=== PATIENT | male | born 1960 | race Two or more races ===

== ENCOUNTER 2017-07-13 20:20 | Emergency (ER) | payer OTHER ==
[~2017-07-13] VITALS: Ht 172.7 cm; Wt 82.1 kg
[2017-07-13] MEDS ORDERED: METF500 PO (20:47)
[2017-07-13] MEDS ORDERED: LISI5 PO (20:48)
[2017-07-13] MEDS ORDERED: TOUJEO SOL300 UNIT/1 SC (20:48)
[2017-07-13 21:08] LABS: BASOPHILS ABSOLUTE AUTO 0.03 K/mm3 (0.00-0.23); BASOPHILS PERCENT AUTO 1 % (0-2); EOSINOPHILS ABSOLUTE AUTO 0.16 K/mm3 (0.00-0.68); EOSINOPHILS PERCENT AUTO 3 % (0-6); Hematocrit 41.2 % (37.0-53.0); Hemoglobin 14.6 g/dL (13.5-17.5); IMMATURE GRAN ABSOLUTE AUTO 0.01 K/mm3 (0.00-0.10); IMMATURE GRAN PERCENT AUTO 0 % (0-1); LYMPHOCYTES ABSOLUTE AUTO 1.71 K/mm3 (0.84-5.20); LYMPHOCYTES PERCENT AUTO 31 % (21-46); MONOCYTES ABSOLUTE AUTO 0.36 K/mm3 (0.16-1.47); MONOCYTES PERCENT AUTO 7 % (4-13); Mean Corpuscular HGB 29.3 pg (26.0-34.0); Mean Corpuscular HGB Conc 35.4 g/dL (31.5-36.5); Mean Corpuscular Volume 83 fL (80-100); Mean Platelet Volume 9.6 fL (9.1-12.4); NEUTROPHILS ABSOLUTE AUTO 3.23 K/mm3 (1.96-9.15); NEUTROPHILS PERCENT AUTO 59 % (41-73); Platelet Count 240 K/mm3 (150-400); RDW Coefficient Variation 12.1 % (11.7-14.2); RDW Standard Deviation 36.6 fL (35.1-46.3); Red Blood Cell Count 4.98 M/mm3 (4.30-5.90)
[2017-07-13 21:26] LABS: Alanine Aminotransfer (ALT/SGP 21 U/L (12-78); Albumin, Blood 3.8 g/dL (3.4-5.0); Albumin/Globulin Ratio 1.1 (0.8-1.8); Alk Phos 66 U/L (50-136); Anion Gap 5 mmol/L (6-16); Aspartate Aminotrans (AST/SGOT 21 U/L (12-37); Bilirubin, Total 0.6 mg/dL (0.1-1.0); Blood Urea Nitrogen 17 mg/dL (8-24); Bun/Creatinine Ratio 19.3 (12.0-20.0); CO2, Blood 29 mmol/L (21-32); Calcium, Blood 8.3 mg/dL (8.5-10.1); Chloride, Blood 106 mmol/L (98-108); Creatinine, Blood 0.88 mg/dL (0.60-1.20); Globulin, Blood 3.5 g/dL (2.2-4.0); Glomerular Filtration Rate >60 (60-); Glucose, Blood 127 mg/dL (70-99); Potassium, Blood 3.8 mmol/L (3.5-5.5); Sodium, Blood 140 mmol/L (136-145); Total Protein, Blood 7.3 g/dL (6.4-8.2); Troponin I <0.015 ng/mL (0.000-0.040)
== END 2017-07-13 23:24 | disposition home or self-care (01) ==
LOC: ER 20:20
PROVIDERS: Emergency Medicine
DX: R07.89 Other chest pain (principal); R42 Dizziness and giddiness; R41.0 Disorientation, unspecified; E11.9 Type 2 diabetes mellitus without complications; I10 Essential (primary) hypertension; Z79.899 Other long term (current) drug therapy; Z79.4 Long term (current) use of insulin; Z79.84 Long term (current) use of oral hypoglycemic drugs
CPT/HCPCS: 36415; 70450; 71046; 80053; 82947; 84484; 85025; 93005; 93010; 99284

== ENCOUNTER → 2017-08-15 | Outpatient (CLI) | payer OTHER ==
[~2017-08-15] MED LIST: LISI5 PO; METF500 PO; TOUJEO SOL300 UNIT/1 SC
== END | disposition home or self-care (01) ==
LOC: LAB SHORT 16:18 → LAB 16:18
DX: E11.9 Type 2 diabetes mellitus without complications (principal)
CPT/HCPCS: 82043

== ENCOUNTER → 2017-08-22 | Outpatient (CLI) | payer OTHER | LOC: LAB SHORT 08:12 → PLD 08:12 | DX: L57.0 Actinic keratosis (principal) | CPT/HCPCS: 88305 ==

== ENCOUNTER 2020-12-01 14:18 | Emergency (ER) | payer OTHER ==
[~2020-12-01] VITALS: Ht 172.7 cm; Wt 82.5 kg
[~2020-12-01 14:18] MED LIST changes: -TOUJEO SOL300 UNIT/1 SC; +TOUJEO SOL300 UNIT/2 SC
[2020-12-01 14:59] LABS: BASOPHILS ABSOLUTE AUTO 0.03 K/mm3 (0.00-0.23); BASOPHILS PERCENT AUTO 1 % (0-2); EOSINOPHILS ABSOLUTE AUTO 0.21 K/mm3 (0.00-0.68); EOSINOPHILS PERCENT AUTO 3 % (0-6); Hematocrit 35.4 % (37.0-53.0); Hemoglobin 12.1 g/dL (13.5-17.5); IMMATURE GRAN ABSOLUTE AUTO 0.02 K/mm3 (0.00-0.10); IMMATURE GRAN PERCENT AUTO 0 % (0-1); LYMPHOCYTES PERCENT AUTO 23 % (21-46); MONOCYTES ABSOLUTE AUTO 0.37 K/mm3 (0.16-1.47); MONOCYTES PERCENT AUTO 6 % (4-13); Mean Corpuscular HGB 29.5 pg (26.0-34.0); Mean Corpuscular HGB Conc 34.2 g/dL (31.5-36.5); Mean Corpuscular Volume 86 fL (80-100); Mean Platelet Volume 9.8 fL (9.1-12.4); NEUTROPHILS ABSOLUTE AUTO 4.39 K/mm3 (1.96-9.15); NEUTROPHILS PERCENT AUTO 67 % (41-73); Platelet Count 266 K/mm3 (150-400); RDW Standard Deviation 37.9 fL (35.1-46.3); White Blood Cell Count 6.52 K/mm3 (4.00-11.30)
[2020-12-01 15:28] LABS: Albumin, Blood 3.8 g/dL (3.4-5.0); Bilirubin, Total 0.4 mg/dL (0.1-1.0); Bun/Creatinine Ratio 21.5 (12.0-20.0); Calcium, Blood 8.4 mg/dL (8.5-10.1); Creatinine, Blood 1.86 mg/dL (0.60-1.20); Globulin, Blood 3.7 g/dL (2.2-4.0); Potassium, Blood 7.2 mmol/L (3.5-5.5); Total Protein, Blood 7.5 g/dL (6.4-8.2)
[2020-12-01] MEDS ORDERED: AMLODIPINE-OLM1 EACH PO (16:59)
[2020-12-01] MEDS ORDERED: ATORVASTATIN CA20 MG PO (17:00)
[2020-12-01] MEDS ORDERED: DYAZIDE 37.5-21 EACH PO (17:00)
[2020-12-01 19:52] LABS: Albumin, Blood 3.4 g/dL (3.4-5.0); Albumin/Globulin Ratio 1.1 (0.8-1.8); Bilirubin, Total 0.6 mg/dL (0.1-1.0); Bun/Creatinine Ratio 21.1 (12.0-20.0); Calcium, Blood 8.2 mg/dL (8.5-10.1); Creatinine, Blood 1.85 mg/dL (0.60-1.20); Globulin, Blood 3.2 g/dL (2.2-4.0); Potassium, Blood 4.4 mmol/L (3.5-5.5); Total Protein, Blood 6.6 g/dL (6.4-8.2)
[2020-12-01] MEDS ORDERED: Norvasc5 MG PO (20:55)
== END 2020-12-01 20:57 | disposition home or self-care (01) ==
LOC: ER 14:18
PROVIDERS: Physician Assistant
DX: N17.9 Acute kidney failure, unspecified (principal); E87.5 Hyperkalemia; E11.9 Type 2 diabetes mellitus without complications; I10 Essential (primary) hypertension; Z79.4 Long term (current) use of insulin; Z79.899 Other long term (current) drug therapy
CPT/HCPCS: 36415; 80053; 85025; 93005; 93010; 94644; 96374; 99284-25; J0610; J1815; J7030

== ENCOUNTER 2022-02-25 19:12 | Inpatient (IN) | payer OTHER ==
[~2022-02-25] VITALS: Ht 172.7 cm; Wt 82.9 kg
[~2022-02-25 19:12] MED LIST changes: +AMLODIPINE-OLM1 EACH PO; +ATORVASTATIN CA20 MG PO; +DYAZIDE 37.5-21 EACH PO; +Norvasc5 MG PO
[2022-02-25 19:43] LABS: Source, Urine Clean Catch
[2022-02-25 19:48] LABS: Appearance, Urine Hazy (Clear); Bilirubin, Urine Neg (Neg); Blood, Urine 4+ (Neg); Color, Urine Yellow (P-Yellow); Glucose Qualitative, Urine 1+ (Neg); Ketones, Urine Neg (Neg); Leukocyte Esterase, Urine Neg (Neg); Nitrite, Urine Neg (Neg); Protein, Urine 4+ (Neg); Specific Gravity, Urine 1.015 (1.003-1.022); Urobilinogen, Urine NORM (Normal)
[2022-02-25 20:06] LABS: Bacteria Few /hpf; Squamous Epithelial Cells Not Seen /hpf (Few)
[2022-02-25] MEDS ORDERED: FUROSEMIDE40 MG PO (21:15)
[2022-02-25] MEDS ORDERED: ROSUVASTATIN CAL5 MG PO (21:15)
[2022-02-25] MEDS ORDERED: OLMESARTAN MEDO20 MG PO (21:16)
[2022-02-26 01:04] LABS: Prostate Specific Antigen 0.992 ng/mL (0.000-4.000)
--- NOTE | 2022-02-26 01:07 | NUR ---
24 HOUR URINE STARTED AT 0100
[2022-02-26 04:59] LABS: BASOPHILS ABSOLUTE AUTO 0.04 K/mm3 (0.00-0.23); BASOPHILS PERCENT AUTO 0 % (0-2); EOSINOPHILS ABSOLUTE AUTO 0.06 K/mm3 (0.00-0.68); EOSINOPHILS PERCENT AUTO 1 % (0-6); Hematocrit 30.6 % (37.0-53.0); Hemoglobin 10.3 g/dL (13.5-17.5); IMMATURE GRAN ABSOLUTE AUTO 0.04 K/mm3 (0.00-0.10); IMMATURE GRAN PERCENT AUTO 0 % (0-1); LYMPHOCYTES ABSOLUTE AUTO 0.91 K/mm3 (0.84-5.20); LYMPHOCYTES PERCENT AUTO 7 % (21-46); MONOCYTES ABSOLUTE AUTO 0.79 K/mm3 (0.16-1.47); MONOCYTES PERCENT AUTO 6 % (4-13); Mean Corpuscular HGB 29.7 pg (26.0-34.0); Mean Corpuscular HGB Conc 33.7 g/dL (31.5-36.5); Mean Corpuscular Volume 88 fL (80-100); NEUTROPHILS ABSOLUTE AUTO 10.88 K/mm3 (1.96-9.15); NEUTROPHILS PERCENT AUTO 86 % (41-73); Platelet Count 275 K/mm3 (150-400); RDW Coefficient Variation 11.9 % (11.7-14.2); RDW Standard Deviation 38.2 fL (35.1-46.3); Red Blood Cell Count 3.47 M/mm3 (4.30-5.90); White Blood Cell Count 12.72 K/mm3 (4.00-11.30)
[2022-02-26 05:34] LABS: Amylase, Blood 71 U/L (25-115); CPK Creatine Kinase 877 U/L (39-308); Uric Acid, Blood 6.9 mg/dL (3.5-7.2)
[2022-02-26 05:51] LABS: Albumin, Blood 2.1 g/dL (3.4-5.0); Anion Gap 9 mmol/L (6-16); Blood Urea Nitrogen 62 mg/dL (8-24); Bun/Creatinine Ratio 8.4 (12.0-20.0); CO2, Blood 21 mmol/L (21-32); Calcium, Blood 6.5 mg/dL (8.5-10.1); Chloride, Blood 108 mmol/L (98-108); Creatinine, Blood 7.35 mg/dL (0.60-1.20); Glomerular Filtration Rate 8 (60-); Glucose, Blood 96 mg/dL (70-99); Phosphorus, Blood 5.5 mg/dL (2.5-4.9); Potassium, Blood 5.4 mmol/L (3.5-5.5); Sodium, Blood 138 mmol/L (136-145)
--- NOTE | 2022-02-26 06:26 | NUR ---
PATIENT FINALLY COMFORTABLE ENOUGH TO SLEEP AROUND 0500 THIS MORNING. MD NOTIFIED TWICE AND ORDERS RECEIVED BOTH TIMES FOR SEVERE HYPERTENSION RANGING FROM 199/108 WHEN HE ARRIVED, TO 190/80 AFTER 10MG IV HYDRALAZINE AND 0.25MCG FENTANYL FOR 9/10 LEFT FLANK PAIN, TO 151/60 AFTER 20MG HYDRALAZINE. TO 151/60 AFTER RECEIVING 20MG IV HYDRALAZINE, 1MG IV DILAUDID FOR 10/10 LEFT FLANK PAIN NOT RESOLVED WITH FENTANYL AND 0.1MG CLONIDINE. PATIENT AND HIS SHAVON HAVE MANY QUESTIONS ABOUT THE CAUSE OF ESCOBAR'S CURRENT MYRIAD OF PROBLEMS
--- NOTE | 2022-02-26 14:33 | NUR ---
PT STATES FEELS OK WITH MINIMAL PAIN AT REST. HOWEVER, WHEN STANDS UP AND MOVES. SHARP STABBING PN ON LEFT FLANK. PT ALSO WANTS TO KNOW OF ANY RESULTS ON ALL TESTS.
--- NOTE | 2022-02-26 17:58 | NUR ---
PT CONCERNED ABOUT PAIIN THIS KENNY. DID GIVE PAIN MED. TRIED ONE, THIS TIME, TRIED BOTH. WILL MONITOR. PT STATES PAIN WORSE AND WANTS TO KNOW WHY. CALLED DR QUEVEDO, HE STATES HE TOLD PT LIKELY MUSCULAR/SKELETAL NOT KIDNEY. HE WILL NOT BE ABLE TO TOLERATE THE ANTI-INFLAMATION MEDS. SO IS USING THE PAIN PILLS. AND HEAT PAD. DONE. RELAYED INFO TO PT . HE ASKING IF SURGERY. EXPLAINED I AM NOT DR, I DO NOT KNOW, BUT CAN ASK DR. WE CAN HOPE FOR REST AND PAIN MANAGEMENT TO SEE IF HELPS. BUT DR IS WHO TO DISCUSS WITH TOMORROW. PT AGREED. BED IN LOW POSITION, CALL LITE IN REACH, CALLS APPROP
--- NOTE | 2022-02-26 23:10 | NUR ---
VOICED EARLIER HAVING "HEAERTBURN" AND "GAS". MD NOTIFIED AND ORDERS FOR TUMS OBTAINED. MED ADMINISTERED. CALL LIGHT IN REACH. IVF INFUSING.
[2022-02-27 03:07] LABS: Protein, Urine Quantitative 745.6 mg/dL (0.0-11.9)
[2022-02-27 04:50] LABS: BASOPHILS ABSOLUTE AUTO 0.02 K/mm3 (0.00-0.23); BASOPHILS PERCENT AUTO 0 % (0-2); EOSINOPHILS PERCENT AUTO 1 % (0-6); Hematocrit 26.8 % (37.0-53.0); Hemoglobin 8.9 g/dL (13.5-17.5); IMMATURE GRAN ABSOLUTE AUTO 0.03 K/mm3 (0.00-0.10); IMMATURE GRAN PERCENT AUTO 0 % (0-1); LYMPHOCYTES ABSOLUTE AUTO 0.74 K/mm3 (0.84-5.20); LYMPHOCYTES PERCENT AUTO 8 % (21-46); MONOCYTES ABSOLUTE AUTO 0.78 K/mm3 (0.16-1.47); MONOCYTES PERCENT AUTO 9 % (4-13); Mean Corpuscular HGB 29.6 pg (26.0-34.0); Mean Corpuscular HGB Conc 33.2 g/dL (31.5-36.5); Mean Corpuscular Volume 89 fL (80-100); Mean Platelet Volume 10.3 fL (9.1-12.4); NEUTROPHILS ABSOLUTE AUTO 7.32 K/mm3 (1.96-9.15); NEUTROPHILS PERCENT AUTO 82 % (41-73); Platelet Count 217 K/mm3 (150-400); RDW Coefficient Variation 11.8 % (11.7-14.2); RDW Standard Deviation 37.6 fL (35.1-46.3); Red Blood Cell Count 3.01 M/mm3 (4.30-5.90); White Blood Cell Count 8.99 K/mm3 (4.00-11.30)
[2022-02-27 05:11] LABS: Albumin, Blood 1.8 g/dL (3.4-5.0); Albumin/Globulin Ratio 0.5 (0.8-1.8); Bilirubin, Total 0.3 mg/dL (0.1-1.0); Bun/Creatinine Ratio 8.6 (12.0-20.0); Calcium, Blood 6.6 mg/dL (8.5-10.1); Creatinine, Blood 7.77 mg/dL (0.60-1.20); Globulin, Blood 3.9 g/dL (2.2-4.0); Magnesium, Blood 2.2 mg/dL (1.6-2.4); Phosphorus, Blood 7.6 mg/dL (2.5-4.9); Potassium, Blood 4.4 mmol/L (3.5-5.5); Total Protein, Blood 5.7 g/dL (6.4-8.2)
--- NOTE | 2022-02-27 05:51 | NUR ---
SUPERVISOR FIBERGLASS BOAT ASSEMBLY SUMMARY BP ELEVATED, OTHERWISE VSS. RECEIVING ANTIHYPERTENSIVES - SEE MAR FOR DETAILS. ASYMPTOMATIC. IVF OF SODIUM BICARB INFUSING ORDERED. HAS BEEN RESTING WITH FEW INTERRUPTIONS. UP AD MARIA. CALL LIGHT IN REACH
--- NOTE | 2022-02-27 16:43 | NUR ---
SHIFT SUMMARY PT REPORTS PAIN IMPROVED DURING DAY PER EMAR, HE IS PASSING SOME GAS BUT STILL HAS NOT HAD BOWEL MOVEMENT. HE AMBULATES WELL TO RESTROOM ON HIS OWN, NO WEAKNESS NOTED. CT SCAN DONE. PT CURRENTLY WATCHING FOOTBALL, DENIES NEEDS AT THIS TIME. TOLERATING PO BUT TAKING IT SLOWLY RELATED TO CONSTIPATION AND BLOATED FEELING.
--- NOTE | 2022-02-27 19:43 | NUR ---
AWAKE, SITTING AT BEDSIDE. IVF INFUSING. CALL LIGHT IN REACH
--- NOTE | 2022-02-28 02:00 | NUR ---
SOAP SUDS ENEMA ADMINISTERED PER MD ORDERS. PT STATED IT "RELIEVED SOME PRESSURE" BUT NO BM. WILL HAVE AM DISCUSS FURTHER TREATMENT OF PTS CONSTIPATION WITH MD IN THE AM. CALL LIGHT IN REACH, ASYNPTOMATIC.
--- NOTE | 2022-02-28 04:05 | NUR ---
ORIENTATION & MOBILITY SPECIALIST SUMMARY RECEIVED BOWEL CARE MEDS, VISITORS WERE AT BEDSIDE. SCHEDULED SOAP SUDS ENEMA WAS HELD FOR LATER. IVF INFUSING AT 50 ML/HR. TOLERATED DIET WELL, BUT CONSTIPATION CONTINUED. LATER ENEMA GIVEN, AND ALTHOUGH DENIED HAVING BM, VOICED IT HAD RELIEVED PRESSURE IN ABD. STILL LATER IN THE NIGHT, VOICED NAUSEA. ZOFRAN GIVEN AND CURRENTLY RESTING QUIETLY. WILL HAVE AM RN HAVE MD REVIEW OPTIONS FOR PT TO HAVE BM. BOWEL SOUNDS SLIGHT TO AUSCULTATION. CALL LIGHT IN REACH. WILL CONTINUE TO MONITOR
[2022-02-28 05:17] LABS: Hematocrit 25.7 % (37.0-53.0); Hemoglobin 8.7 g/dL (13.5-17.5)
[2022-02-28 05:54] LABS: Magnesium, Blood 1.8 mg/dL (1.6-2.4)
[2022-02-28 06:08] LABS: Albumin, Blood 1.7 g/dL (3.4-5.0); Anion Gap 9 mmol/L (6-16); Blood Urea Nitrogen 76 mg/dL (8-24); Bun/Creatinine Ratio 9.2 (12.0-20.0); CO2, Blood 28 mmol/L (21-32); Calcium, Blood 7.1 mg/dL (8.5-10.1); Chloride, Blood 99 mmol/L (98-108); Creatinine, Blood 8.27 mg/dL (0.60-1.20); Glomerular Filtration Rate 7 (60-); Glucose, Blood 204 mg/dL (70-99); Phosphorus, Blood 8.4 mg/dL (2.5-4.9); Potassium, Blood 4.1 mmol/L (3.5-5.5); Sodium, Blood 136 mmol/L (136-145)
[2022-02-28 12:50] LABS: Creatinine, Blood 8.27 mg/dL (0.60-1.20)
--- NOTE | 2022-02-28 13:30 | NUR ---
CONSULT FOR PERMACAT SPOKE w/ GEN SURGERY, PT HAS ATE TODAY SO PLAN FOR NPO AFTER MIDNIGHT FOR PROCEDURE TOMORROW w/ DR FARR.
[2022-02-28 14:08] LABS: IMMUNOGLOBULIN A, QN, SERUM 172 mg/dL (90-386); IMMUNOGLOBULIN G, QN, SERUM 733 mg/dL (603-1613); IMMUNOGLOBULIN M, QN, SERUM 91 mg/dL (20-172)
--- NOTE | 2022-02-28 18:22 | NUR ---
SHIFT SUMMARY PLAN FOR PERMACATH PLACEMENT TOMORROW. PT EDUCATED ON NPO AFTER MIDNIGHT. PER DR NUNES, STARTS GENTLE IV HYDRATION THEN. HAD 2 BM's TODAY & REPORTS SOME ABD RELIEF; PASSING GAS. CONT's TO C/O GAS CRAMPS.
--- NOTE | 2022-03-01 01:44 | NUR ---
RECEIVED REPORT FROM [facility]. ASSUMING CARE OF PT UNTIL END OF SHIFT. PT RESTING QUIETLY. NS AT 50 MLS/HR INFUSING WHILE PT IS NPO FOR PERMA CATH PLACEMENT IN AM. CALL LT IN REACH.
--- NOTE | 2022-03-01 01:54 | NUR ---
NURSE NOTE ASSESSMENT DONE. MEDICATIONS ADMINISTERED. REPORT GIVEN TO ARLENE RENAE FOR TRANSFERRING PATIENT CARE.
--- NOTE | 2022-03-01 02:46 | NUR ---
PT RESTING QUIETLY. IVF INFUSING. RESP E/U ON RA. NO NEEDS AT THIS TIME. CALL LT IN REACH.
--- NOTE | 2022-03-01 04:47 | NUR ---
SHIFT SUMMARY: ASSUMED CARE AT 0144. A/O. PLEASANT AND COOPERATIVE. ON RA. RESTED WELL T/O SHIFT. NS AT 50 MLS/HR STARTED AT MN WHILE NPO. PERMA CATH PLACEMENT SCHEDULED FOR TODAY. NO ACUTE CHANGES. INDEP IN RM. WILL CONTINUE TO PROVIDE CARE UNTIL SHIFT REPORT.
[2022-03-01 07:00] LABS: Influenza A, PCR NEGATIVE (NEGATIVE); Influenza B, PCR NEGATIVE (NEGATIVE); Resp Syncytial Virus, PCR NEGATIVE (NEGATIVE); SARS-Cov-2 (COVID-19) PCR, MMC NEGATIVE (NEGATIVE)
[2022-03-01 08:11] LABS: Magnesium, Blood 2.1 mg/dL (1.6-2.4)
[2022-03-01 08:28] LABS: Albumin, Blood 1.6 g/dL (3.4-5.0); Anion Gap 9 mmol/L (6-16); Blood Urea Nitrogen 87 mg/dL (8-24); Bun/Creatinine Ratio 9.9 (12.0-20.0); CO2, Blood 29 mmol/L (21-32); Calcium, Blood 6.9 mg/dL (8.5-10.1); Chloride, Blood 97 mmol/L (98-108); Creatinine, Blood 8.75 mg/dL (0.60-1.20); Glomerular Filtration Rate 6 (60-); Glucose, Blood 178 mg/dL (70-99); Phosphorus, Blood 8.3 mg/dL (2.5-4.9); Potassium, Blood 4.2 mmol/L (3.5-5.5); Sodium, Blood 135 mmol/L (136-145)
--- NOTE | 2022-03-01 11:15 | NUR ---
THIS NURSE ENTERED PATIENT ROOM TO ADMINISTER MORNING MEDICATIONS. DR. TURNER IN ROOM WITH NURSE, PT AND PATIENT'S SISTER AT THAT TIME. DR TURNER ORDERED THIS NURSE TO WAIT ON GIVING PATIENT MORNING MEDICATIONS UNTIL HE VERIFIES WITH DR. FARR IF PATIENT SHOULD HAVE THEM. CALL PLACED TO DR. FARR AT 1110 ON 03/01/22 TO INQUIRE IF THESE MEDICATIONS CAN BE GIVEN OR NOT. VSS THOUGH HTN NOTED. CORRECT FITTING BLOOD PRESSURE CUFF REPLACED THE PREVIOUS ONE THAT WAS TOO SMALL. DR MENDOZA UPDATED ON MEDICATION HOLD. SURGERY CENTER CALLED WHILE THIS NURSE WAS IN ROOM WITH PATIENT AND DR. AZAR AND VERIFIED TO HOLD MORNING MEDICATIONS.
[2022-03-01 16:08] LABS: Anion Gap 10 mmol/L (6-16); Blood Urea Nitrogen 91 mg/dL (8-24); Bun/Creatinine Ratio 10.6 (12.0-20.0); CO2, Blood 28 mmol/L (21-32); Calcium, Blood 7.5 mg/dL (8.5-10.1); Chloride, Blood 96 mmol/L (98-108); Creatinine, Blood 8.61 mg/dL (0.60-1.20); Glomerular Filtration Rate 7 (60-); Glucose, Blood 237 mg/dL (70-99); Phosphorus, Blood 8.3 mg/dL (2.5-4.9); Potassium, Blood 4.2 mmol/L (3.5-5.5); Sodium, Blood 134 mmol/L (136-145)
[2022-03-01 18:10] LABS: ANTIMYELOPEROXIDASE (MPO) ABS <0.2 units (0.0-0.9); ANTIPROTEINASE 3 (PR-3) ABS <0.2 units (0.0-0.9); ATYPICAL PANCA <1:20 titer (Neg:<1:20); CYTOPLASMIC (C-ANCA) <1:20 titer (Neg:<1:20); PERINUCLEAR (P-ANCA) <1:20 titer (Neg:<1:20)
--- NOTE | 2022-03-01 18:42 | NUR ---
SHIFT SUMMARY PT AXO X4, PLEASANT AND COOPERATIVE WITH CARE. PT NPO AT START OF SHIFT AWAITING PERMICATH PLACEMENT WHICH HE STATED HE WAS TOLD WOULD HAPPEN "AROUND 11:30 AM TO NOON." AFTER 1300 THIS NURSE CALLED DAY SURGERY WHO STATED THIS PATIENT "WAS NOT ON THE SCHEDULE," AND THAT DR FARR WOULD NOT BE ABLE TO DO THIS PROCEDURE TODAY. THIS NURSE UPDATED FAMILY WHO WAS UPSET AT THAT TIME AND STATED THAT THEY WERE WORRIED THAT PATIENT'S PROCEDURE AND DIALYSIS WOULD BE DELAYED TOO MUCH AND ARE CONSIDERING TRYING TO TRANFER PATIENT TO [facility]. THIS NURSE ACTIVELY LISTENED AND EMPLOYED THERAPEUTIC COMMUNICATION TO [facility] WITH GOOD EFFECT. FAMILY REQUESTED TO SPEAK WITH PATIENT ADVOCATE. THIS NURSE CALLED AND LEFT MESSAGE FOR PATIENT ADVOCATE TO RETURN CALL. SEE PRIOR NOTE. VSS THOUGH HTN NOTED WITH AFTERNOON VS. DR AZAR NOTIFIED BUT SINCE BP WAS NOT OVER 160, THIS NURSE DID NOT GIVE PRN MED. CBG ACHS, MEDICATED PER EMAR. IV PATENT AND SALINE LOCKED. BED IN LOW POSITION, CALL LIGHT WITHIN REACH. PT HAD SHOWER THIS SHIFT. UP IN CHAIR THROUGHOUT THE DAY. REFUSED PAIN MEDICATION THOUGH COMPLAINS ABOUT BACK PAIN. HEATING PAD IN PLACE. DR FARR CALLED AND STATED THAT DR VICK WILL ASSESS PATIENT TOMORROW AND FORM PLAN FOR PROCEDURE. FAMILY UPDATED.
--- NOTE | 2022-03-02 03:53 | NUR ---
SHIFT SUMMARY PATIENT IS ALERT AND ORIENTED. PATIENT HAS BEEN NPO SINCE MIDNIGHT. PATIENT HAS NOT HAD ANY ACUTE EVENTS THIS SHIFT. VITAL SIGNS REVIEWED. PATIENT IS AWAITING PERMACATH PLACEMENT TODAY. PATIENT HAS COMPLAINED OF GAS/FLANK PAIN AND MEDICATED PER EMAR. PATIENT HAS NOT COMPLAINED OF SOB, NAUSEA OR VOMITTING THIS SHIFT. PATIENT HAS BEEN RESTING COMFORTABLY THIS SHIFT. BED IN LOCKED AND LOWEST POSITION. CALL LIGHT IN PLACE. WILL MONITOR UNTIL SHIFT CHANGE.
[2022-03-02 04:45] LABS: Hematocrit 27.6 % (37.0-53.0); Hemoglobin 9.3 g/dL (13.5-17.5)
[2022-03-02 05:12] LABS: Magnesium, Blood 2.2 mg/dL (1.6-2.4)
[2022-03-02 05:35] LABS: Albumin, Blood 1.7 g/dL (3.4-5.0); Anion Gap 11 mmol/L (6-16); Blood Urea Nitrogen 97 mg/dL (8-24); Bun/Creatinine Ratio 10.9 (12.0-20.0); CO2, Blood 29 mmol/L (21-32); Chloride, Blood 97 mmol/L (98-108); Creatinine, Blood 8.93 mg/dL (0.60-1.20); Glomerular Filtration Rate 6 (60-); Glucose, Blood 174 mg/dL (70-99); Phosphorus, Blood 8.3 mg/dL (2.5-4.9); Potassium, Blood 4.3 mmol/L (3.5-5.5); Sodium, Blood 137 mmol/L (136-145)
--- NOTE | 2022-03-02 08:48 | NUR ---
RN NOTE CALLED DR AZAR. SHE SAID TO HOLD ALL AM MEDS EXCEPT FOR CLONIDINE PO, CAN GIVE THE REST WHEN HE GETS BACK FROM SURGERY.
--- NOTE | 2022-03-02 11:50 | NUR ---
AM NOTE MR RICHARD IS AWAITING OR FOR PERMACATH PLACEMENT, THEN DIALYSIS PLANNED FOR AFTER PLACEMENT. FAMILY AT BEDSIDE. C/O /10 ABDOMINAL DISCOMFORT. HE SAID HE HASN'T HAD A BM FOR A FEW DAYS. AM COLACE AND MIRILAX HELD NPO. UP INDEPENDENTLY TO THE BATHROOM. BED LOW, CALL LIGHT INI REACH.
--- NOTE | 2022-03-02 13:14 | NUR ---
PT BROUGHT FROM [facility] IN [facility] FOR PERMACATH PLACEMENT.
--- NOTE | 2022-03-02 17:47 | NUR ---
RN NOTE RETURNED TO MEDICAL UNIT S/P NEW PERMACATH AND HEMODIALYSIS. BP 176/76. ORDER IN AUG FOR HYDRALAZINE FOR HTN BUT NO PARAMETERS. I CALLED AND TAKED WITH DR AZAR. RECHECK BP IN AN HOUR, DO NOT TREAT AT THIS TIME. DO NOT GIVE AM BUMEX PER DR AZAR. R CHEST PERMACATH IN PLACE. AREA SORE BUT NOT PAINFUL. AT BEDSIDE.
--- NOTE | 2022-03-03 04:36 | NUR ---
SHIFT SUMMARY PATIENT IS ALERT AND ORIENTED. PATIENT HAS HAD NO ACUTE EVENTS THIS SHIFT. VITAL SIGNS REVIEWED. PATIENT HAS BEEN RESTING COMFORTABLY THIS SHIFT. PATIENT HAS NOT COMPLAINED OF NAUSEA, SOB, PAIN, OR VOMITTING THIS SHIFT. PATIENT HAS BEEN IND AND HAS BEEN PLEASENT AND COOPERATATIVE WITH CARE THIS SHIFT. BED IN LOCKED AND LOWEST POSITION. CALL LIGHT IN PLACE. WILL MONITOR UNTIL SHIFT CHANGE.
[2022-03-03 04:56] LABS: Hematocrit 26.5 % (37.0-53.0); Hemoglobin 9.2 g/dL (13.5-17.5)
[2022-03-03 05:40] LABS: Albumin, Blood 1.7 g/dL (3.4-5.0); Anion Gap 10 mmol/L (6-16); Blood Urea Nitrogen 79 mg/dL (8-24); Bun/Creatinine Ratio 11.5 (12.0-20.0); CO2, Blood 30 mmol/L (21-32); Calcium, Blood 7.6 mg/dL (8.5-10.1); Chloride, Blood 96 mmol/L (98-108); Creatinine, Blood 6.88 mg/dL (0.60-1.20); Glomerular Filtration Rate 9 (60-); Glucose, Blood 235 mg/dL (70-99); Magnesium, Blood 2.2 mg/dL (1.6-2.4); Phosphorus, Blood 7.6 mg/dL (2.5-4.9); Potassium, Blood 4.1 mmol/L (3.5-5.5); Sodium, Blood 136 mmol/L (136-145)
--- NOTE | 2022-03-03 18:18 | NUR ---
PT IS ALERT AND ORIENTED, PLEASANT AND COOPERATIVE. INDEPENDENT IN THE ROOM. NO REPORTS OF PAIN, N/V. DIALYSIS RECEIVED TODAY, PT TOLERATED WELL. WILL CONTINUE TO MONITOR AND REPORT TO ONCOMING RN.
[2022-03-04 05:06] LABS: Hematocrit 26.3 % (37.0-53.0); Hemoglobin 8.9 g/dL (13.5-17.5)
[2022-03-04 05:43] LABS: Albumin, Blood 1.6 g/dL (3.4-5.0); Anion Gap 8 mmol/L (6-16); Blood Urea Nitrogen 72 mg/dL (8-24); Bun/Creatinine Ratio 11.9 (12.0-20.0); CO2, Blood 31 mmol/L (21-32); Calcium, Blood 7.8 mg/dL (8.5-10.1); Chloride, Blood 99 mmol/L (98-108); Creatinine, Blood 6.06 mg/dL (0.60-1.20); Glomerular Filtration Rate 10 (60-); Glucose, Blood 185 mg/dL (70-99); Magnesium, Blood 2.2 mg/dL (1.6-2.4); Sodium, Blood 138 mmol/L (136-145)
--- NOTE | 2022-03-04 06:28 | NUR ---
NO ACUTE EVENTS OVERNIGHT. PT REMAINS HYPERTENSIVE AND WITH ELEVATED BLOOD GLUCOSE LEVELS. BLOOD SUGARS MONITORED AC/HS AND TREATED WITH LOW SLIDING SCALE INSULIN. PT REPORTS MINIMAL SHORTNESS OF BREATH, IF ANY, AND MUCH IMPROVED SINCE ADMISSION. PT ALSO ENDORSES NOTABLE DIFFERENCE IN THE EDEMA TO HIS LOWER EXTREMITIES, LESS FEELING OF BEING BLOATED, AND NO PAIN TO HIS LEFT FLANK. MR. RICHARD IS UP AD MARIA IN HIS ROOM AND MOSTLY INDEPENDENT FOR HIS ADLS.
[2022-03-04 09:11] LABS: HBSAG SCREEN Negative (Negative); HCV AB <0.1 (0.0-0.9); HEP A AB, IGM Negative (Negative); HEP B CORE AB, IGM Negative (Negative)
[2022-03-04 12:07] LABS: M-SPIKE, % Comment: % (Not Observed); PROTEIN,TOTAL,URINE 745.1 mg/dL (Not Estab.)
--- NOTE | 2022-03-04 18:28 | NUR ---
SHIFT SUMMARY PT WITH RIGHT IJ CATH FOR DIALYSIS, PLACED ON THE . PT C/O PAIN TO THE RIGHT SHOULDER, RECEIVED TYLENOL. DECLINED OXICODONE. BLE EDEMA CONTINUES TO BE +3, PITTING. PT HAS AN INTAKE APPT SCHEDULED FOR OUTPT DIALYSIS AT [facility] ON 03/07 AT 1:30PM. DIALYSIS DAYS WILL BE M/W/F. AT BEDSIDE FROM LUNCH - END OF SHIFT. INDEPENDENT IN ROOM. ROOM AIR. REPORTS A MEDIUM BOWEL MOVEMENT TODAY, NOT WITNESSED BY RN, BUT REPORTED BY PATIENT. PT IS a&O X4.
--- NOTE | 2022-03-04 19:30 | NUR ---
RECEIVED BEDSIDE REPORT. PT SITTING IN CHAIR AT THIS TIME. NO NEEDS. WILL CONTINUE TO PROVIDE CARE T/O SHIFT. CALL LT IN REACH.
--- NOTE | 2022-03-04 20:42 | NUR ---
PT SITTING IN CHAIR VISITING WITH SON. MEDS GIVEN WITHOUT DIFFICULTY. REPORTS TWO BOWEL MOVEMENTS. WOULD LIKE TO CONTINUE WITH THE BOWEL CARE, STATES HE HAS DIFFICULTY GOING AT TIMES.
--- NOTE | 2022-03-04 22:00 | NUR ---
NO NEEDS AT THIS TIME. INDEP IN RM. USES CALL LT APPROPRIATELY. CALL LT IN REACH.
--- NOTE | 2022-03-05 00:10 | NUR ---
PT RESTING QUIETLY. HOB ELEVATED PER PT'S COMFORT. CALL LT IN REACH.
--- NOTE | 2022-03-05 02:07 | NUR ---
PT RESTING QUIETLY. CALL LT IN REACH.
--- NOTE | 2022-03-05 04:25 | NUR ---
PT RESTING. NO NEEDS AT THIS TIME. CALL LT IN REACH.
[2022-03-05 04:37] LABS: Hematocrit 25.9 % (37.0-53.0); Hemoglobin 8.7 g/dL (13.5-17.5)
--- NOTE | 2022-03-05 04:42 | NUR ---
SHIFT SUMMARY: A/O. INDEP IN RM. ON RA. MEDICATED WITH TYLENOL X 1 FOR RIGHT SHOULDER PAIN R/T A PROCEDURE DONE. NO ACUTE CHANGES. PT SCHEDULED FOR DIALYSIS TODAY. LBM 03/04/22. WILL CONTINUE TO PROVIDE CARE UNTIL SHIFT REPORT.
[2022-03-05 04:51] LABS: Albumin, Blood 1.5 g/dL (3.4-5.0); Anion Gap 10 mmol/L (6-16); Blood Urea Nitrogen 98 mg/dL (8-24); Bun/Creatinine Ratio 13.4 (12.0-20.0); CO2, Blood 28 mmol/L (21-32); Calcium, Blood 7.1 mg/dL (8.5-10.1); Chloride, Blood 99 mmol/L (98-108); Creatinine, Blood 7.32 mg/dL (0.60-1.20); Glomerular Filtration Rate 8 (60-); Glucose, Blood 196 mg/dL (70-99); Magnesium, Blood 2.2 mg/dL (1.6-2.4); Phosphorus, Blood 5.3 mg/dL (2.5-4.9); Potassium, Blood 4.3 mmol/L (3.5-5.5); Sodium, Blood 137 mmol/L (136-145)
--- NOTE | 2022-03-05 17:30 | NUR ---
SHIFT SUMMARY NO ACUTE CHANGES DURING SHIFT. PT ALERT AND ORIENTED. PT HAD HD TODAY, TOLERATED. PT INDEPENDENT IN ROOM. BM X 1. NO C/O PAIN. WILL CONTINUE TO MONITOR. CALL LIGHT WITHIN REACH.
[2022-03-06 04:50] LABS: Hematocrit 26.9 % (37.0-53.0); Hemoglobin 9.3 g/dL (13.5-17.5)
[2022-03-06 05:19] LABS: Albumin, Blood 1.8 g/dL (3.4-5.0); Anion Gap 8 mmol/L (6-16); Blood Urea Nitrogen 83 mg/dL (8-24); Bun/Creatinine Ratio 12.7 (12.0-20.0); CO2, Blood 29 mmol/L (21-32); Calcium, Blood 8.3 mg/dL (8.5-10.1); Chloride, Blood 98 mmol/L (98-108); Creatinine, Blood 6.54 mg/dL (0.60-1.20); Glomerular Filtration Rate 9 (60-); Glucose, Blood 240 mg/dL (70-99); Magnesium, Blood 2.2 mg/dL (1.6-2.4); Phosphorus, Blood 5.2 mg/dL (2.5-4.9); Potassium, Blood 4.3 mmol/L (3.5-5.5); Sodium, Blood 135 mmol/L (136-145)
--- NOTE | 2022-03-06 06:28 | NUR ---
HOSPICE NURSE SUMMARY: A&Ox4. PLEASANT AND COOPERATIVE WITH CARE. VSS. INDEPENDENT WITHIN ROOM. C/O DIFFICULTY SLEEPING THROUGHOUT THE NIGHT, BUT DENIES ANY DISCOMFORTS. GLUCOSE LAST NIGHT SLIGHTLY ELEVATED AND SHORT-ACTING INSULIN ADMINISTERED PER EMR. WILL REPORT TO ONCOMING RN.
--- NOTE | 2022-03-06 17:14 | NUR ---
SHIFT SUMMARY NO ACUTE CHANGES DURING SHIFT. PT ALERT AND ORIENTED, CALLS APPROPRIATELY. NO HD TODAY, PLANS FOR TREATMENT TOMORROW BEFORE D/C. PT INDEPENDENT IN ROOM, UP FOR SHOWER THIS AFTERNOON. NO NEEDS VOICED. CALL LIGHT WITHIN REACH.
--- NOTE | 2022-03-07 04:33 | NUR ---
AUTO FORMER MACHINE OPERATOR SUMMARY: A&Ox4. PLEASANT AND COOPERATIVE WITH CARE. VSS. NO ASE ADDITION OF 10u GLARGINE LAST NIGHT. ANTICIPATE DC HOME AFTER DIALYSIS Tx TODAY. NO C/O PAIN OR DISCOMFORT. WILL REPORT TO ONCOMING RN.
[2022-03-07 05:20] LABS: Hematocrit 26.8 % (37.0-53.0); Hemoglobin 9.2 g/dL (13.5-17.5)
[2022-03-07 05:39] LABS: Albumin, Blood 1.7 g/dL (3.4-5.0); Anion Gap 10 mmol/L (6-16); Blood Urea Nitrogen 102 mg/dL (8-24); Bun/Creatinine Ratio 13.4 (12.0-20.0); CO2, Blood 27 mmol/L (21-32); Calcium, Blood 7.8 mg/dL (8.5-10.1); Chloride, Blood 100 mmol/L (98-108); Creatinine, Blood 7.62 mg/dL (0.60-1.20); Glomerular Filtration Rate 8 (60-); Glucose, Blood 215 mg/dL (70-99); Magnesium, Blood 2.1 mg/dL (1.6-2.4); Phosphorus, Blood 5.9 mg/dL (2.5-4.9); Potassium, Blood 4.3 mmol/L (3.5-5.5); Sodium, Blood 137 mmol/L (136-145)
[2022-03-07] MEDS ORDERED: BUME2 PO (10:19)
[2022-03-07] MEDS ORDERED: Calcium Acetat667 MG PO (10:20)
[2022-03-07] MEDS ORDERED: AMLO5 PO (10:20)
[2022-03-07] MEDS ORDERED: CATAPRES0.1 MG PO (10:21)
[2022-03-07] MEDS ORDERED: DOCU100 PO (10:21)
[2022-03-07] MEDS ORDERED: INSULIN LI100 UNIT/6 SC (10:23)
[2022-03-07] MEDS ORDERED: TAMS.4ER PO (10:23)
[2022-03-07] MEDS ORDERED: SENNA LAXATIVE8.6 MG PO (10:24)
== END 2022-03-07 12:49 | disposition home or self-care (01) | DRG 683 ==
LOC: ER 19:12 → MEDS 19:13 → ER 19:13 → MEDS 22:31
PROVIDERS: Family Medicine; Internal Medicine; Internal Medicine Nephrology; Student in an Organized Health Care Education/Training Program; Surgery; ADMIT Internal Medicine
PROC: B518YZA Fluoroscopy of Superior Vena Cava using Other Contrast, Guidance (ICD-10-PCS; 2022-03-02)
PROC: B548ZZA Ultrasonography of Superior Vena Cava, Guidance (ICD-10-PCS; 2022-03-02)
PROC: 5A1D70Z Performance of Urinary Filtration, Intermittent, Less than 6 Hours Per Day (ICD-10-PCS; 2022-03-02)
PROC: 02HV33Z Insertion of Infusion Device into Superior Vena Cava, Percutaneous Approach (ICD-10-PCS; principal; 2022-03-02 11:30)
DX: N17.9 Acute kidney failure, unspecified (principal); E87.1 Hypo-osmolality and hyponatremia; I12.0 Hypertensive chronic kidney disease with stage 5 chronic kidney disease or end stage renal disease; M62.82 Rhabdomyolysis; E11.22 Type 2 diabetes mellitus with diabetic chronic kidney disease; N18.6 End stage renal disease; R10.9 Unspecified abdominal pain; K59.00 Constipation, unspecified; D63.1 Anemia in chronic kidney disease; Z20.822 Contact with and (suspected) exposure to COVID-19; N40.0 Benign prostatic hyperplasia without lower urinary tract symptoms; Z90.49 Acquired absence of other specified parts of digestive tract; Z98.890 Other specified postprocedural states; Z87.891 Personal history of nicotine dependence; Z79.4 Long term (current) use of insulin; Z79.899 Other long term (current) drug therapy; E88.09 Other disorders of plasma-protein metabolism, not elsewhere classified; E83.39 Other disorders of phosphorus metabolism
CPT/HCPCS: 0241U; 36415; 51798; 71045; 74176; 77001; 80053; 80069; 80074; 81001; 81050; 82150; 82550; 82565; 82947; 83516; 83520; 83690; 83735; 83880; 84100; 84156; 84166; 84550; 85014; 85018; 85025; 86037; 86038; 86317; 86334; 86335; 93005; 93010; 93306; 96374; 99285-25; A9270; C1750; G0103; J0360; J0690; J1100; J1170; J1644; J1815; J2250; J2405; J2704; J2795; J3010; J7030; J7070

== ENCOUNTER → 2022-03-25 | Outpatient (CLI) | payer OTHER ==
[~2022-03-25] MED LIST changes: +AMLO5 PO; +BUME2 PO; +CATAPRES0.1 MG PO; +Calcium Acetat667 MG PO; +DOCU100 PO; +FUROSEMIDE40 MG PO; +INSULIN LI100 UNIT/6 SC; +OLMESARTAN MEDO20 MG PO; +ROSUVASTATIN CAL5 MG PO; +SENNA LAXATIVE8.6 MG PO; +TAMS.4ER PO
== END | disposition home or self-care (01) ==
LOC: LAB 13:12 → LAB SHORT 13:12
DX: N39.0 Urinary tract infection, site not specified (principal)
CPT/HCPCS: 87086

== ENCOUNTER 2023-07-25 12:14 | Day surgery (SDC) | payer OTHER ==
[~2023-07-25] VITALS: Ht 172.7 cm; Wt 79.6 kg
[~2023-07-25 12:14] MED LIST changes: +Lactated Ringer's 1,000 ML IV ONE; +propofoL 40 ML IV ONE
[2023-07-25] MEDS ORDERED: ROSU5 (12:38)
[2023-07-25] MEDS ORDERED: SAXA2.5T (12:38)
[2023-07-25] MEDS ORDERED: GABA100 (12:39)
[2023-07-25] MEDS ORDERED: NS 1,000 ML IV ONE (13:11)
[2023-07-25 14:28] VITALS: BP 109/65
--- NOTE | 2023-07-25 14:29 | NUR ---
07/25/23 1429 Praveena Lawson PT'S CBG TAKEN AFTER PROCEDURE BY RN RAFI. CBG WAS 128 AT 1359.
== END 2023-07-25 14:27 | disposition home or self-care (01) ==
LOC: ORSCSDS 12:14
PROVIDERS: Surgery
PROC: 0DBK8ZX Excision of Ascending Colon, Via Natural or Artificial Opening Endoscopic, Diagnostic (ICD-10-PCS; principal; 2023-07-25 13:00)
DX: Z12.11 Encounter for screening for malignant neoplasm of colon (principal); D12.2 Benign neoplasm of ascending colon; E11.22 Type 2 diabetes mellitus with diabetic chronic kidney disease; I12.0 Hypertensive chronic kidney disease with stage 5 chronic kidney disease or end stage renal disease; N18.6 End stage renal disease; Z99.2 Dependence on renal dialysis; N40.0 Benign prostatic hyperplasia without lower urinary tract symptoms; Z79.4 Long term (current) use of insulin; Z79.899 Other long term (current) drug therapy
CPT/HCPCS: 82947; 88305; J2704; J7120

== ENCOUNTER 2023-12-17 12:21 | Emergency (ER) | payer OTHER ==
[~2023-12-17] VITALS: Ht 172.7 cm; Wt 73.5 kg
[~2023-12-17 12:21] MED LIST changes: +CARV3.125 PO; +GABA100; -Lactated Ringer's 1,000 ML IV ONE; +OLME20 PO; +ROSU5; +SAXA2.5T; -propofoL 40 ML IV ONE
[2023-12-17 12:45] LABS: BASOPHILS ABSOLUTE AUTO 0.05 K/mm3 (0.00-0.23); BASOPHILS PERCENT AUTO 1 % (0-2); EOSINOPHILS ABSOLUTE AUTO 0.16 K/mm3 (0.00-0.68); EOSINOPHILS PERCENT AUTO 2 % (0-6); Hematocrit 46.1 % (37.0-53.0); Hemoglobin 15.2 g/dL (13.5-17.5); IMMATURE GRAN ABSOLUTE AUTO 0.03 K/mm3 (0.00-0.10); IMMATURE GRAN PERCENT AUTO 0 % (0-1); LYMPHOCYTES PERCENT AUTO 12 % (21-46); MONOCYTES ABSOLUTE AUTO 0.69 K/mm3 (0.16-1.47); MONOCYTES PERCENT AUTO 7 % (4-13); Mean Corpuscular HGB 29.8 pg (26.0-34.0); Mean Corpuscular Volume 90 fL (80-100); NEUTROPHILS PERCENT AUTO 78 % (41-73); Platelet Count 163 K/mm3 (150-400); RDW Coefficient Variation 15.6 % (11.7-14.2); RDW Standard Deviation 51.5 fL (35.1-46.3); White Blood Cell Count 9.83 K/mm3 (4.00-11.30)
[2023-12-17 13:39] LABS: Albumin, Blood 3.4 g/dL (3.4-5.0); Albumin/Globulin Ratio 0.8 (0.8-1.8); Bilirubin, Total 0.7 mg/dL (0.1-1.0); Bun/Creatinine Ratio 4.3 (12.0-20.0); Calcium, Blood 8.8 mg/dL (8.5-10.1); Potassium, Blood 4.2 mmol/L (3.5-5.5); Total Protein, Blood 7.4 g/dL (6.4-8.2)
[2023-12-17] MEDS ORDERED: NIFE30ER PO (14:34)
[2023-12-17] MEDS ORDERED: CLONIDINE1 EA10 TD (14:38)
[2023-12-17] MEDS ORDERED: Atropine/Scopalam/Hyoscam/PB 5 ML UDC PO ONE (15:00)
[2023-12-17] MEDS ORDERED: Mag Hydrox/AL Hydrox/Simeth 30 ML UDC PO ONE (15:00)
[2023-12-17] MEDS ORDERED: Lidocaine 2% Viscous Soln 15 ML UDC PO ONE (15:00)
[2023-12-17] MEDS ORDERED: CARAFATE1 GM/10 M1 PO (15:32)
[2023-12-17 15:40] VITALS: BP 221/80
== END 2023-12-17 15:54 | disposition home or self-care (01) ==
LOC: ER 12:21
PROVIDERS: Physician Assistant
DX: K21.9 Gastro-esophageal reflux disease without esophagitis (principal); Z79.899 Other long term (current) drug therapy; E11.22 Type 2 diabetes mellitus with diabetic chronic kidney disease; I12.9 Hypertensive chronic kidney disease with stage 1 through stage 4 chronic kidney disease, or unspecified chronic kidney disease; N18.9 Chronic kidney disease, unspecified
CPT/HCPCS: 71046; 80053; 84484; 85025; A9270

== ENCOUNTER 2024-01-22 05:24 | Emergency (ER) | payer OTHER ==
[~2024-01-22] VITALS: Ht 172.7 cm; Wt 78.0 kg
[~2024-01-22 05:24] MED LIST changes: +CARAFATE1 GM/10 M1 PO; +CLONIDINE1 EA10 TD; +NIFE30ER PO
[2024-01-22 05:36] VITALS: BP 171/77
[2024-01-22] MEDS ORDERED: Ondansetron HCl 2 MG / ML 2ML Vial IV ONE (05:55)
[2024-01-22] MEDS ORDERED: Glucagon 1 MG/KIT VIAL IV ONE (05:55)
[2024-01-22] MEDS ORDERED: Dexamethasone Sod Phos 10 MG/ML 1ML VIAL IV ONE (05:55)
== END 2024-01-22 07:42 | disposition home or self-care (01) ==
LOC: ER 05:24
DX: K20.80 Other esophagitis without bleeding (principal); J02.9 Acute pharyngitis, unspecified; I12.0 Hypertensive chronic kidney disease with stage 5 chronic kidney disease or end stage renal disease; E11.22 Type 2 diabetes mellitus with diabetic chronic kidney disease; N18.6 End stage renal disease; Z99.2 Dependence on renal dialysis
CPT/HCPCS: 96374; 96375; 99283-25; J1100; J1610; J2405

== ENCOUNTER 2024-01-25 16:48 | Inpatient (IN) | payer OTHER ==
[~2024-01-25] VITALS: Ht 172.7 cm; Wt 77.1 kg
[2024-01-25 17:16] LABS: BASOPHILS ABSOLUTE AUTO 0.04 K/mm3 (0.00-0.23); BASOPHILS PERCENT AUTO 0 % (0-2); EOSINOPHILS ABSOLUTE AUTO 0.15 K/mm3 (0.00-0.68); EOSINOPHILS PERCENT AUTO 1 % (0-6); Hematocrit 33.4 % (37.0-53.0); Hemoglobin 10.9 g/dL (13.5-17.5); IMMATURE GRAN ABSOLUTE AUTO 0.04 K/mm3 (0.00-0.10); IMMATURE GRAN PERCENT AUTO 0 % (0-1); LYMPHOCYTES ABSOLUTE AUTO 0.99 K/mm3 (0.84-5.20); LYMPHOCYTES PERCENT AUTO 7 % (21-46); MONOCYTES ABSOLUTE AUTO 0.74 K/mm3 (0.16-1.47); MONOCYTES PERCENT AUTO 6 % (4-13); Mean Corpuscular HGB 29.3 pg (26.0-34.0); Mean Corpuscular HGB Conc 32.6 g/dL (31.5-36.5); Mean Corpuscular Volume 90 fL (80-100); Mean Platelet Volume 10.7 fL (9.1-12.4); NEUTROPHILS ABSOLUTE AUTO 11.52 K/mm3 (1.96-9.15); NEUTROPHILS PERCENT AUTO 86 % (41-73); Platelet Count 198 K/mm3 (150-400); RDW Coefficient Variation 15.5 % (11.7-14.2); RDW Standard Deviation 50.5 fL (35.1-46.3); Red Blood Cell Count 3.72 M/mm3 (4.30-5.90); White Blood Cell Count 13.48 K/mm3 (4.00-11.30)
[2024-01-25] MEDS ORDERED: CARV3.125 PO (17:29)
[2024-01-25] MEDS ORDERED: DEXL60CA3 (17:29)
[2024-01-25] MEDS ORDERED: OLMSRTN-AMLDPN1 EAC8 PO (17:29)
[2024-01-25 18:18] LABS: Albumin, Blood 3.1 g/dL (3.4-5.0); Albumin/Globulin Ratio 0.7 (0.8-1.8); Bilirubin, Total 0.9 mg/dL (0.1-1.0); Bun/Creatinine Ratio 7.1 (12.0-20.0); Calcium, Blood 8.3 mg/dL (8.5-10.1); Creatinine, Blood 8.31 mg/dL (0.60-1.20); Globulin, Blood 4.4 g/dL (2.2-4.0); Potassium, Blood 4.7 mmol/L (3.5-5.5); Total Protein, Blood 7.5 g/dL (6.4-8.2)
[2024-01-25 18:23] LABS: Influenza A, PCR NEGATIVE (NEGATIVE); Influenza B, PCR NEGATIVE (NEGATIVE); Resp Syncytial Virus, PCR NEGATIVE (NEGATIVE); SARS-Cov-2 (COVID-19) PCR, MMC NEGATIVE (NEGATIVE)
[2024-01-25] MEDS ORDERED: Carvedilol 3.125 MG Tab PO ONE (18:55)
[2024-01-25] MEDS ORDERED: Bumetanide 0.25 MG/ML 10ML Vial IV ONE (18:55)
[2024-01-25 22:58] LABS: Base Excess Venous 11.5 mmol/L; PCO2 Venous 44.4 mmHg (38-42)
[2024-01-25] MEDS ORDERED: Bumetanide 0.25 MG/ML 4ML ViaL IV SCH (23:00)
[2024-01-25 23:37] VITALS: BP 236/83
[2024-01-26] VITALS (20 sets, daily range): BP systolic 152–202; BP diastolic 71–90
[2024-01-26] MEDS ORDERED: CATAPRES0.3 MG PO (00:28)
[2024-01-26] MEDS ORDERED: CATAPRES-TTS 21 EAC1 TOP (00:29)
[2024-01-26] MEDS ORDERED: INSULIN GL100 UNIT/2 SC (00:32)
[2024-01-26] MEDS ORDERED: PANTOPRAZOLE SO40 M2 PO (00:33)
[2024-01-26] MEDS ORDERED: CALCIUM ACETAT667 M2 PO (00:35)
[2024-01-26] MEDS ORDERED: BUMETANIDE2 M6 PO (00:36)
[2024-01-26] MEDS ORDERED: GABA100 PO (00:36)
[2024-01-26] MEDS ORDERED: ADALAT CC PO (00:37)
[2024-01-26] MEDS ORDERED: DEXLANSOPRAZOLE60 MG PO (00:37)
[2024-01-26] MEDS ORDERED: CARVEDILOL3.125 MG PO (00:38)
[2024-01-26] MEDS ORDERED: AZIT250 PO (00:39)
[2024-01-26] MEDS ORDERED: LORazepam 2 MG/ML 1ML Injection IV PRN (01:30)
[2024-01-26] MEDS ORDERED: HydrALAZINE HCl 20 MG / ML 1ML Vial IV PRN ×2 (01:30→11:50)
--- NOTE | 2024-01-26 03:39 | NUR ---
ADMIT ASSESSMENT COMPLETED BY EMANUEL White RN.
[2024-01-26] MEDS ORDERED: Pantoprazole Sodium 40 MG Tab PO SCH (06:00)
[2024-01-26] MEDS ORDERED: CloNIDine HCL 0.2 MG Patch TOP SCH (06:00)
--- NOTE | 2024-01-26 06:38 | NUR ---
SHIFT SUMMARY: Pt admitted for acute hypoxic respiratory failure and is a full code. Is alert and able to make needs known. ADLs have been independent during shift. Denies pain or discomfort when asked. Stated that he was short of breath when he came to the floor but SPO2 was in the low 90s. MD was consulted and agreed to biox and respiratory consult. Respiratory started bipap with a 15l bleed in due to fluid overload. This brought his SPO2 in to the mid to high 90s but after a little bit PT stated that he was breathing easier. By the time of this writing bipap was brought down to a 10L bleed in with spo2 about 96%. Telly was started as well and been running sinus at 70.
[2024-01-26] MEDS ORDERED: Insulin Human Lispro 100 Units/ML 3ML Syringe SC SCH (07:30)
[2024-01-26] MEDS ORDERED: Carvedilol 6.25 MG Tab PO SCH (08:00)
[2024-01-26] MEDS ORDERED: Carvedilol 3.125 MG Tab PO SCH ×2 (08:00→17:00)
[2024-01-26] MEDS ORDERED: Bumetanide 0.25 MG/ML 4ML ViaL IV SCH (08:00)
[2024-01-26] MEDS ORDERED: Calcium Acetate 667 MG Gel Cap PO SCH (08:30)
[2024-01-26] MEDS ORDERED: Acetaminophen 325 MG TABLET PO PRN (08:50)
[2024-01-26] MEDS ORDERED: CloNIDine 0.3 MG Tab PO SCH (09:00)
[2024-01-26] MEDS ORDERED: Losartan Potassium 50 MG Tab PO SCH (09:00)
[2024-01-26] MEDS ORDERED: Gabapentin 100 MG Cap PO SCH (09:00)
[2024-01-26] MEDS ORDERED: Heparin Sodium,Porcine 5,000 UNIT/0.5 ML SDV SC SCH (09:00)
[2024-01-26] MEDS ORDERED: Tamsulosin HCl 0.4 MG Cap PO SCH ×2 (09:00)
[2024-01-26] MEDS ORDERED: Losartan/HCTZ 50-12.5 TAB PO SCH (09:00)
[2024-01-26] MEDS ORDERED: NIFEdipine 30 MG TabCR PO SCH (09:00)
[2024-01-26] MEDS ORDERED: Bumetanide 1 MG Tab PO SCH (09:00)
[2024-01-26 09:42] LABS: Albumin, Blood 2.6 g/dL (3.4-5.0); Anion Gap 15 mmol/L (3-11); Blood Urea Nitrogen 76 mg/dL (8-24); CO2, Blood 29 mmol/L (21-32); Calcium, Blood 7.6 mg/dL (8.5-10.1); Chloride, Blood 98 mmol/L (98-108); Glucose, Blood 182 mg/dL (70-99); Phosphorus, Blood 5.7 mg/dL (2.5-4.9); Potassium, Blood 5.4 mmol/L (3.5-5.5); Sodium, Blood 137 mmol/L (136-145)
[2024-01-26 09:44] LABS: Bun/Creatinine Ratio 7.5 (12.0-20.0); Glomerular Filtration Rate 5 (60-)
[2024-01-26] MEDS ORDERED: AmLODIPine Besylate 5 MG Tab PO SCH (12:00)
--- NOTE | 2024-01-26 18:38 | NUR ---
SHIFT SUMMARY: PT A/O X4. PLEASANT AND COOPERATIVE WITH CARE. UPON SHIFT ARRIVAL, PT ON BIPAP c 10L BLEED IN. PT RECEIVED DIALYSIS THIS AM. PT STATES HE IS FEELING BETTER POST DIALYSIS TREATMENT. PT CURRENTLY ON 5L NC W/O C/O SOB. ESSENTIAL HTN NOTED. BP MEDICATIONS CHANGED AND GIVEN. AT BEDSIDE. CALL LIGHT IN REACH. BED IN LOWEST POSITION.
[2024-01-26] MEDS ORDERED: Magnesium Hydroxide Conc 10 ML UDC PO PRN (19:45)
[2024-01-27] VITALS (17 sets, daily range): BP systolic 123–186; BP diastolic 57–78
[2024-01-27] MEDS ORDERED: Melatonin 5 MG Tablet PO SCH (02:00)
--- NOTE | 2024-01-27 05:16 | NUR ---
NO ACUTE CHANGES OVERNIGHT. PT ABLE TO MAKE NEEDS KNOWN. NO DESAT WITH AMBULATION TO BATHROOM. CONTINUOUS PULSE OX IN PLACE. PT SAT >92% ON 2L NC. PT REQUESTED MELATONIN TO HELP SLEEP. DR. SALGADO PLACED ORDER.
--- NOTE | 2024-01-27 06:38 | NUR ---
PER DR. NUNES. OK TO GET LABS WITH DIALYSIS
[2024-01-27] MEDS ORDERED: HydrALAZINE HCl 20 MG / ML 1ML Vial IV PRN (07:40)
--- NOTE | 2024-01-27 08:30 | NUR ---
OXYGEN TITRATION PATIENT REMOVED FROM SUPPLEMENTAL OXYGEN VIA NASAL CANNULA. CURRENTLY ON ROOM AIR, SPO2 WNL AT 95%. WILL CONTINUE TO MONITOR.
[2024-01-27] MEDS ORDERED: CloNIDine HCL 0.3 MG Patch TOP SCH (08:45)
[2024-01-27] MEDS ORDERED: CloNIDine 0.1 MG Tab PO SCH (09:00)
[2024-01-27] MEDS ORDERED: AmLODIPine Besylate 5 MG Tab PO SCH (09:00)
[2024-01-27] MEDS ORDERED: Labetalol HCL 100 MG TAB PO SCH ×2 (09:00)
[2024-01-27 09:45] LABS: BASOPHILS ABSOLUTE AUTO 0.02 K/mm3 (0.00-0.23); BASOPHILS PERCENT AUTO 0 % (0-2); EOSINOPHILS ABSOLUTE AUTO 0.28 K/mm3 (0.00-0.68); EOSINOPHILS PERCENT AUTO 5 % (0-6); Hematocrit 27.3 % (37.0-53.0); IMMATURE GRAN ABSOLUTE AUTO 0.02 K/mm3 (0.00-0.10); IMMATURE GRAN PERCENT AUTO 0 % (0-1); LYMPHOCYTES ABSOLUTE AUTO 0.61 K/mm3 (0.84-5.20); LYMPHOCYTES PERCENT AUTO 12 % (21-46); MONOCYTES ABSOLUTE AUTO 0.34 K/mm3 (0.16-1.47); MONOCYTES PERCENT AUTO 7 % (4-13); Mean Corpuscular HGB 29.4 pg (26.0-34.0); Mean Corpuscular Volume 89 fL (80-100); Mean Platelet Volume 11.1 fL (9.1-12.4); NEUTROPHILS ABSOLUTE AUTO 3.98 K/mm3 (1.96-9.15); NEUTROPHILS PERCENT AUTO 76 % (41-73); Platelet Count 178 K/mm3 (150-400); RDW Coefficient Variation 15.1 % (11.7-14.2); RDW Standard Deviation 49.1 fL (35.1-46.3); Red Blood Cell Count 3.06 M/mm3 (4.30-5.90); White Blood Cell Count 5.25 K/mm3 (4.00-11.30)
[2024-01-27 10:02] LABS: Albumin, Blood 2.4 g/dL (3.4-5.0); Anion Gap 13 mmol/L (3-11); Blood Urea Nitrogen 55 mg/dL (8-24); CO2, Blood 31 mmol/L (21-32); Calcium, Blood 7.8 mg/dL (8.5-10.1); Chloride, Blood 98 mmol/L (98-108); Creatinine, Blood 7.86 mg/dL (0.60-1.20); Glomerular Filtration Rate 7 (60-); Glucose, Blood 287 mg/dL (70-99); Magnesium, Blood 2.6 mg/dL (1.6-2.4); Phosphorus, Blood 4.8 mg/dL (2.5-4.9); Potassium, Blood 4.3 mmol/L (3.5-5.5); Sodium, Blood 138 mmol/L (136-145)
[2024-01-27] MEDS ORDERED: LABE100 PO (13:16)
[2024-01-27] MEDS ORDERED: Amlodipine Bes2.5 MG PO (13:17)
[2024-01-27] MEDS ORDERED: LOSA50 PO (13:19)
[2024-01-27] MEDS ORDERED: MELATONIN5 M1 PO (13:20)
--- NOTE | 2024-01-27 13:56 | NUR ---
DISCHARGE NOTE PATIENT A/OX4, ABLE TO MAKE NEEDS KNOWN. PATIENT BP MEDICATIONS AND DIURETIC HELD THIS AM PER DIALYSIS NURSE REQUEST. PATIENT WENT TO DAILYSIS PRIOR TO DISCHARGE. NEW CLONIDINE PATCH APPLIED PRIOR TO DISCHARGE. PIV REMOVED. NEW MEDICATIOSN DISCUSSED WITH PATIENT AND PATIENT EDUCATED REGARDING DISCHARGE INSTRUCTIONS AND NEW MEDS AND CHANGES TO OLD MEDS. TELEMETRY REMOVED. PATIENT REMOVED FROM SUPPLEMENTAL OXYGEN THIS AM, TOLERATING WELL SPO2 WNL ON ROOM AIR. PATIENT WITH NO QUESTIONS AT TIME OF DISCHARGE. ASSISTED TO FAMILY VEHICLE BY [facility] STAFF VIA WHEELCHAIR.
== END 2024-01-27 13:45 | disposition home or self-care (01) | DRG 189 ==
LOC: ER 16:48 → ERHOLD 16:49 → MEDS 16:49
PROVIDERS: Internal Medicine Nephrology; Physician Assistant; ADMIT Family Medicine
PROC: 5A09357 Assistance with Respiratory Ventilation, Less than 24 Consecutive Hours, Continuous Positive Airway Pressure (ICD-10-PCS; principal; 2024-01-26)
DX: J96.01 Acute respiratory failure with hypoxia (principal); N18.6 End stage renal disease; N25.81 Secondary hyperparathyroidism of renal origin; E87.1 Hypo-osmolality and hyponatremia; I13.2 Hypertensive heart and chronic kidney disease with heart failure and with stage 5 chronic kidney disease, or end stage renal disease; I16.1 Hypertensive emergency; D63.1 Anemia in chronic kidney disease; E11.22 Type 2 diabetes mellitus with diabetic chronic kidney disease; N40.0 Benign prostatic hyperplasia without lower urinary tract symptoms; I50.9 Heart failure, unspecified; E86.1 Hypovolemia; I16.0 Hypertensive urgency; K21.9 Gastro-esophageal reflux disease without esophagitis; Z99.2 Dependence on renal dialysis; I1A.0 Resistant hypertension; F41.9 Anxiety disorder, unspecified; E11.40 Type 2 diabetes mellitus with diabetic neuropathy, unspecified; D72.829 Elevated white blood cell count, unspecified; E87.70 Fluid overload, unspecified; E87.5 Hyperkalemia; Z98.890 Other specified postprocedural states; Z79.899 Other long term (current) drug therapy; Z79.4 Long term (current) use of insulin; Z79.2 Long term (current) use of antibiotics
CPT/HCPCS: 0241U; 71045; 80053; 80069; 82803; 82947; 83735; 83880; 84484; 85025; 93005; 93010; 93306; 94660; 94762; 96374; 96376; 99285-25; A9270; G0378; J0360; J1644

== ENCOUNTER 2024-05-06 00:12 | Emergency (ER) | payer OTHER ==
[~2024-05-06] VITALS: Ht 172.7 cm; Wt 75.0 kg
[~2024-05-06 00:12] MED LIST changes: +ADALAT CC PO; +AZIT250 PO; +Amlodipine Bes2.5 MG PO; +BUMETANIDE2 M6 PO; +CALCIUM ACETAT667 M2 PO; +CARVEDILOL3.125 MG PO; +CATAPRES-TTS 21 EAC1 TOP; +CATAPRES0.3 MG PO; +DEXL60CA3; +DEXLANSOPRAZOLE60 MG PO; +GABA100 PO; +INSULIN GL100 UNIT/2 SC; +LABE100 PO; +LOSA50 PO; +MELATONIN5 M1 PO; +OLMSRTN-AMLDPN1 EAC8 PO; +PANTOPRAZOLE SO40 M2 PO
[2024-05-06 00:43] LABS: BASOPHILS ABSOLUTE AUTO 0.04 K/mm3 (0.00-0.23); BASOPHILS PERCENT AUTO 1 % (0-2); EOSINOPHILS ABSOLUTE AUTO 0.47 K/mm3 (0.00-0.68); EOSINOPHILS PERCENT AUTO 6 % (0-6); Hematocrit 31.4 % (37.0-53.0); Hemoglobin 10.5 g/dL (13.5-17.5); IMMATURE GRAN ABSOLUTE AUTO 0.02 K/mm3 (0.00-0.10); IMMATURE GRAN PERCENT AUTO 0 % (0-1); LYMPHOCYTES ABSOLUTE AUTO 0.92 K/mm3 (0.84-5.20); LYMPHOCYTES PERCENT AUTO 11 % (21-46); MONOCYTES ABSOLUTE AUTO 0.62 K/mm3 (0.16-1.47); MONOCYTES PERCENT AUTO 7 % (4-13); Mean Corpuscular HGB 30.8 pg (26.0-34.0); Mean Corpuscular HGB Conc 33.4 g/dL (31.5-36.5); Mean Corpuscular Volume 92 fL (80-100); Mean Platelet Volume 11.5 fL (9.1-12.4); NEUTROPHILS ABSOLUTE AUTO 6.29 K/mm3 (1.96-9.15); NEUTROPHILS PERCENT AUTO 75 % (41-73); Platelet Count 151 K/mm3 (150-400); RDW Coefficient Variation 15.7 % (11.7-14.2); RDW Standard Deviation 52.9 fL (35.1-46.3); Red Blood Cell Count 3.41 M/mm3 (4.30-5.90); White Blood Cell Count 8.36 K/mm3 (4.00-11.30)
[2024-05-06 01:43] LABS: Albumin, Blood 3.5 g/dL (3.4-5.0); Albumin/Globulin Ratio 0.9 (0.8-1.8); Bun/Creatinine Ratio 6.2 (12.0-20.0); Calcium, Blood 10.4 mg/dL (8.5-10.1); Creatinine, Blood 13.5 mg/dL (0.60-1.20); Globulin, Blood 3.8 g/dL (2.2-4.0); Potassium, Blood 5.2 mmol/L (3.5-5.5); Total Protein, Blood 7.3 g/dL (6.4-8.2)
[2024-05-06 04:30] VITALS: BP 234/89
== END 2024-05-06 04:43 | disposition home or self-care (01) ==
LOC: ER 00:12
PROVIDERS: Student in an Organized Health Care Education/Training Program
DX: R07.89 Other chest pain (principal); I12.0 Hypertensive chronic kidney disease with stage 5 chronic kidney disease or end stage renal disease; E11.22 Type 2 diabetes mellitus with diabetic chronic kidney disease; N18.6 End stage renal disease; N40.0 Benign prostatic hyperplasia without lower urinary tract symptoms; Z99.2 Dependence on renal dialysis; Z79.4 Long term (current) use of insulin; Z79.899 Other long term (current) drug therapy
CPT/HCPCS: 71045; 80053; 83690; 84484; 85025; 93005; 93010; 99285-25

== ENCOUNTER 2024-07-29 09:45 | Inpatient (IN) | payer OTHER ==
[2024-07-29] VITALS (39 sets, daily range): BP systolic 155–230; BP diastolic 60–124
[~2024-07-29] VITALS: Ht 172.7 cm; Wt 77.0 kg
[2024-07-29 10:17] LABS: BASOPHILS ABSOLUTE AUTO 0.06 K/mm3 (0.00-0.23); BASOPHILS PERCENT AUTO 1 % (0-2); EOSINOPHILS ABSOLUTE AUTO 0.86 K/mm3 (0.00-0.68); EOSINOPHILS PERCENT AUTO 11 % (0-6); Hematocrit 37.8 % (37.0-53.0); Hemoglobin 12.4 g/dL (13.5-17.5); IMMATURE GRAN ABSOLUTE AUTO 0.01 K/mm3 (0.00-0.10); IMMATURE GRAN PERCENT AUTO 0 % (0-1); LYMPHOCYTES ABSOLUTE AUTO 0.87 K/mm3 (0.84-5.20); LYMPHOCYTES PERCENT AUTO 11 % (21-46); MONOCYTES ABSOLUTE AUTO 0.46 K/mm3 (0.16-1.47); MONOCYTES PERCENT AUTO 6 % (4-13); Mean Corpuscular HGB 30.5 pg (26.0-34.0); Mean Corpuscular HGB Conc 32.8 g/dL (31.5-36.5); Mean Corpuscular Volume 93 fL (80-100); Mean Platelet Volume 12.1 fL (9.1-12.4); NEUTROPHILS ABSOLUTE AUTO 5.34 K/mm3 (1.96-9.15); NEUTROPHILS PERCENT AUTO 70 % (41-73); Platelet Count 118 K/mm3 (150-400); RDW Coefficient Variation 16.1 % (11.7-14.2); Red Blood Cell Count 4.06 M/mm3 (4.30-5.90)
[2024-07-29] MEDS ORDERED: Labetalol HCL 5 MG/ML 4ML Injection (Single Dose) IV ONE ×2 (10:30→12:00)
[2024-07-29 10:43] LABS: Ethanol (Alcohol), Blood, Med <3 mg/dL
[2024-07-29 10:55] LABS: Alanine Aminotransfer (ALT/SGP 27 U/L (12-78); Albumin, Blood 3.9 g/dL (3.4-5.0); Alk Phos 127 U/L (50-136); Anion Gap 14 mmol/L (3-11); Aspartate Aminotrans (AST/SGOT 24 U/L (12-37); Bilirubin, Total 1.3 mg/dL (0.1-1.0); Blood Urea Nitrogen 95 mg/dL (8-24); Bun/Creatinine Ratio 8.1 (12.0-20.0); CO2, Blood 30 mmol/L (21-32); Calcium, Blood 10.1 mg/dL (8.5-10.1); Chloride, Blood 100 mmol/L (98-108); Globulin, Blood 4.1 g/dL (2.2-4.0); Glomerular Filtration Rate 4 (60-); Glucose, Blood 239 mg/dL (70-99); Potassium, Blood 7.1 mmol/L (3.5-5.5); Sodium, Blood 137 mmol/L (136-145)
[2024-07-29 10:57] LABS: International Normalized Ratio 1.07; Prothrombin Time Results 11.4 Sec (9.7-11.5)
[2024-07-29] MEDS ORDERED: Insulin Regular 100 Unit/ML 1ML Dose IV ONE (11:00)
[2024-07-29] MEDS ORDERED: Dextrose 50% 50 ML Syringe IV ONE (11:00)
[2024-07-29] MEDS ORDERED: CALCIUM GLUC IN NACL, ISO-OSM 100 ML IV ONE (11:00)
[2024-07-29] MEDS ORDERED: Dextrose 50% 50 ML Vial IV ONE (11:05)
[2024-07-29] MEDS ORDERED: dexmedeTOMIDine 100 ML IV SCH (12:55)
[2024-07-29] MEDS ORDERED: NiCARdipine HCL 50 MG in NS 250 ML IV SCH ×2 (12:55→14:20)
[2024-07-29] MEDS ORDERED: LORazepam 2 MG/ML 1ML Injection IV ONE (13:50)
[2024-07-29] MEDS ORDERED: NiCARdipine HCL 25 MG/10 ML (2.5MG/ML) IV SCH (14:10)
[2024-07-29] MEDS ORDERED: FLU VACC TS2024-25(6MOS UP)/PF 45 MCG/0.5 ML SYRINGE IM SCH (14:10)
[2024-07-29] MEDS ORDERED: LORazepam 2 MG/ML 1ML Injection IV PRN (14:10)
[2024-07-29] MEDS ORDERED: Ondansetron HCl 2 MG / ML 2ML Vial IV PRN (14:10)
[2024-07-29] MEDS ORDERED: Insulin Regular 100 UNIT/ML 10ML Vial SC SCH (18:00)
[2024-07-29] MEDS ORDERED: HydrALAZINE HCl 20 MG / ML 1ML Vial IV PRN ×3 (18:00→20:05)
--- NOTE | 2024-07-29 18:08 | NUR ---
SHIFT SUMMARY PT ADMITTED FROM HOME FOR AMS. RESPOND TO PAINFUL STIMULI ONLY, DOES NOT OPEN EYES. AFEBRILE. NSR, HYPERTENSIVE. NICARDIPINE HELD PER DR. TORRES UNLESS SBP SUSTAINS >220. 1L NC[address] CT HEAD NEGATIVE FOR ACUTE PROCESS. HD IN PROCESS, PT'S REGULAR SCHEDULE IS MWF. NPO. ANEURIC. LESIONS TO LEFT FLEMING, BRUISE TO LEFT HIP. SKIN OTHERWISE INTACT. PIV TO LAC. FISTULA TO YAJAIRA. , SHAVON, PRESENT ON ADMISSION. CAROTID US IN PROGRESS. ECHO ORDERED. SAFETY, COMFORT, HYGIENE ADDRESSED.
[2024-07-29] MEDS ORDERED: Labetalol HCL 5 MG/ML 20MLVIAL IV PRN (18:10)
[2024-07-29] MEDS ORDERED: CloNIDine HCL 0.2 MG Patch TOP SCH (18:10)
[2024-07-29] MEDS ORDERED: Insulin Glargine-Yfgn 100 Unit/mL 3 ML SYR SC SCH (21:00)
--- NOTE | 2024-07-29 22:03 | NUR ---
ASSUMPTION OF CARE: PT OPENS EYES SPONTANEOUSLY, BUT DOES NOT ANSWER QUESTIONS OR FOLLOW COMMANDS. PT AGGITATED AT TIMES AND ATTMEPTS TO GET OUT OF BED, NOT REDIRECTABLE. NICARDIPINE DRIP STARTED AT 2.5 MG/HR FOR GOAL OF SBP <180 PER LENNY. SBP CURRENTLY 190-220. INTERNATIONAL TRADE COMPLIANCE MANAGER IN PLACE, SR WITH HR 70-90. PT ON RA WITH SPO2 MID TO HIGH 90'S. LUNGS CLEAR/DIM. RR 16-20. PT HAS NOT YET VOIDED. POWERGLIDE PLACED THIS SHIFT TO KAIDEN, PATENT AND INFUSING. PIV TO LAC PATENT AND SALINE LOCKED. NO BM YET. MOVES AROUND IN BED SPONTANEOUSLY. BED LOW AND LOCKED, BED ALARM ON FOR SAFETY.
[2024-07-30] VITALS (67 sets, daily range): BP systolic 152–214; BP diastolic 64–141
[2024-07-30 04:19] LABS: BASOPHILS ABSOLUTE AUTO 0.04 K/mm3 (0.00-0.23); BASOPHILS PERCENT AUTO 1 % (0-2); EOSINOPHILS ABSOLUTE AUTO 0.58 K/mm3 (0.00-0.68); EOSINOPHILS PERCENT AUTO 9 % (0-6); Hematocrit 31.8 % (37.0-53.0); Hemoglobin 10.7 g/dL (13.5-17.5); IMMATURE GRAN ABSOLUTE AUTO 0.02 K/mm3 (0.00-0.10); IMMATURE GRAN PERCENT AUTO 0 % (0-1); LYMPHOCYTES ABSOLUTE AUTO 0.71 K/mm3 (0.84-5.20); LYMPHOCYTES PERCENT AUTO 11 % (21-46); MONOCYTES ABSOLUTE AUTO 0.49 K/mm3 (0.16-1.47); MONOCYTES PERCENT AUTO 8 % (4-13); Mean Corpuscular HGB 30.5 pg (26.0-34.0); Mean Corpuscular HGB Conc 33.6 g/dL (31.5-36.5); Mean Corpuscular Volume 91 fL (80-100); Mean Platelet Volume 12.3 fL (9.1-12.4); NEUTROPHILS ABSOLUTE AUTO 4.43 K/mm3 (1.96-9.15); NEUTROPHILS PERCENT AUTO 71 % (41-73); Platelet Count 153 K/mm3 (150-400); RDW Coefficient Variation 16.3 % (11.7-14.2); RDW Standard Deviation 54.4 fL (35.1-46.3); Red Blood Cell Count 3.51 M/mm3 (4.30-5.90); White Blood Cell Count 6.27 K/mm3 (4.00-11.30)
--- NOTE | 2024-07-30 05:58 | NUR ---
SHIFT SUMMARY: PT INCREASINGLY AGGITATED T/O THE NIGHT. PRECEDEX INFUSING AT 0.4 MCG/KG/HR. PT NOT ANSWERING QUESTIONS OR FOLLOWING COMMANDS. NOT-REDIRECTABLE. ATTEMPTING TO GET OUT OF BED. REMAINS IN SR WITH HR 60'S. SBP 150-200 T/O THE NIGHT. PLACED ON 2L NC FOR SLEEP. SPO2 MID TO HIGH 90'S WITH PERIODS OF DESATURATION. PT DID NOT VOID, BLADDER SCAN VOLUME SHOWED 62 ML. POWERGLIDE TO KAIDEN PATENT. PIV TO LAC PATENT. PT HAD MEDIUM INCONT BM THIS SHIFT. BED LOCKED, BED ALARM ON FOR SAFETY.
[2024-07-30] MEDS ORDERED: Pantoprazole Sodium 40 MG Injection IV SCH (06:00)
[2024-07-30 06:13] LABS: Albumin/Globulin Ratio 0.9 (0.8-1.8); Bilirubin, Total 1.4 mg/dL (0.1-1.0); Bun/Creatinine Ratio 7.1 (12.0-20.0); Calcium, Blood 8.7 mg/dL (8.5-10.1); Creatinine, Blood 7.99 mg/dL (0.60-1.20); Globulin, Blood 3.5 g/dL (2.2-4.0); Phosphorus, Blood 4.9 mg/dL (2.5-4.9); Total Protein, Blood 6.5 g/dL (6.4-8.2)
[2024-07-30 06:15] LABS: Potassium, Blood 7.1 mmol/L (3.5-5.5)
[2024-07-30 06:23] LABS: Magnesium, Blood 2.3 mg/dL (1.6-2.4)
[2024-07-30] MEDS ORDERED: INSULIN HUMAN REGULAR IV SCH (06:30)
[2024-07-30] MEDS ORDERED: D5W-NS 1,000 ML IV SCH (06:30)
[2024-07-30] MEDS ORDERED: Dextrose 50% 50 ML Vial IV ONE (06:30)
[2024-07-30] MEDS ORDERED: NS IV SCH (06:30)
[2024-07-30] MEDS ORDERED: Insulin Regular 100 UNIT/ML 10ML Vial IV ONE (06:45)
[2024-07-30] MEDS ORDERED: Calcium Gluconate 10% 1,000 MG in NS 50 ML IV ONE (06:55)
[2024-07-30] MEDS ORDERED: Heparin Sodium 5000 Units/ML 1ML MDV SC SCH (09:00)
[2024-07-30] MEDS ORDERED: Sodium Zirconium Cyclosilicate 10 GM Packet PO SCH (13:35)
[2024-07-30] MEDS ORDERED: CATAPRES-TTS 21 EAC1 TOP (14:00)
[2024-07-30] MEDS ORDERED: LACT10SY PO (14:01)
[2024-07-30] MEDS ORDERED: Catapres0.3 MG PO (14:01)
[2024-07-30] MEDS ORDERED: LOSA50 PO (14:02)
[2024-07-30] MEDS ORDERED: LOKELMA10 GM PO (14:02)
[2024-07-30] MEDS ORDERED: INSULIN LI100 UNIT/6 SC (14:04)
[2024-07-30] MEDS ORDERED: Labetalol HCL 100 MG TAB PO SCH (15:25)
[2024-07-30] MEDS ORDERED: AmLODIPine Besylate 5 MG Tab PO SCH (15:30)
--- NOTE | 2024-07-30 16:42 | NUR ---
SHIFT SUMMARY PT ALERT AND ORIENTED TO SELF, YEAR, PRESIDENT. SLOW AND POORLY COORDINATED MOTOR MOVEMENTS AT TIMES. FINE MOTOR MOVEMENTS DIFFICULT. PT APPEARS TO HAVE DIFFICULTY PROCESSING COMPLEX QUESTIONS. UNABLE TO VERBALIZE SENSATIONS AND REQUIRES DIRECT YES/NO QUESTIONS AT THIS TIME. AFEBRILE. REMAINED ON RA. SB TO NSR WITH HYPERTENSION. SEVERAL HOME MEDICATIONS RESUMED. DR. TORRES AWARE OF CONTINUED HYPERTENSION AND IS CURRENTLY REVIEWING ORDERS. PT SWALLOWING WELL AND TOLERATING FOODS. CARB CONSISTENT DIET INITIATED. INSULIN ORDERS BEING UPDATED BY PROVIDER. PT/OT CONSULTED. PATIENT ABLE TO STAND AND AMBULATE WITH CONTINUAL VERBAL CUES AND STAND BY ASSIST. SMALL BM. ANEURIC. HD THIS AM, -2.5L, REPEAT K 6.4 - DR. NUNES NOTIFIED. LOKELMA X2 DOSES GIVEN. REPEAT K THIS AFTERNOON. MIDLINE AND PIV TO LUE. FISUTLA TO RUE. SCABS TO LEFT FLEMING. BRUISING TO LEFT HIP. CARE PLAN REVIEWED. HOME MED REC COMPLETED PER PCP RECORDS. AND 2 SONS AT BEDSIDE AND UPDATED TO STATUS AND PLAN OF CARE. SAFETY, COMFORT, HYGIENE ADDRESSED.
[2024-07-30] MEDS ORDERED: Insulin Human Lispro 100 Units/ML 3ML Syringe SC SCH (17:30)
--- NOTE | 2024-07-30 18:26 | NUR ---
REPEAT K RESULT 5.3, CALLED TO DR. NUNES. ACKNOWLEDGED. TELEPHONE ORDERS TO DC IV FLUIDS. RECHECK LABS IN AM.
[2024-07-30] MEDS ORDERED: Insulin Glargine-Yfgn 100 Unit/mL 3 ML SYR SC SCH (21:00)
[2024-07-30] MEDS ORDERED: CloNIDine HCl 0.2 MG Tab PO SCH (21:00)
[2024-07-30] MEDS ORDERED: HydrALAZINE HCl 25 MG Tab PO SCH (21:00)
[2024-07-31] VITALS (43 sets, daily range): BP systolic 145–197; BP diastolic 54–84
[2024-07-31 03:35] LABS: Hematocrit 32.3 % (37.0-53.0); Hemoglobin 10.5 g/dL (13.5-17.5)
[2024-07-31 03:52] LABS: Anion Gap 12 mmol/L (3-11); Blood Urea Nitrogen 53 mg/dL (8-24); Bun/Creatinine Ratio 6.8 (12.0-20.0); CO2, Blood 33 mmol/L (21-32); Calcium, Blood 9.3 mg/dL (8.5-10.1); Chloride, Blood 95 mmol/L (98-108); Glomerular Filtration Rate 7 (60-); Glucose, Blood 141 mg/dL (70-99); Magnesium, Blood 2.5 mg/dL (1.6-2.4); Phosphorus, Blood 7.6 mg/dL (2.5-4.9); Potassium, Blood 4.8 mmol/L (3.5-5.5); Sodium, Blood 135 mmol/L (136-145)
--- NOTE | 2024-07-31 05:13 | NUR ---
SHIFT SUMMARY PT IS A/OX4, RESPONDING TO QUESTIONS APPROPRIATLY. AT START OF SHIFT HE WAS ANSWERING ONLY YES/NO QUESTIONS VERY SLOWLY. T/O HE HAS BEEN ABLE TO ANSWER QUESTIONS IN SMALL SENTENCES AND MAKE NEEDS KNOWN. SOME DIFFICULTY FULLY UNDERSTANDING DIRECTIONS, NEEDS REINFORCEMENT. FOLLOWS COMMANDS. ON LAP WINDING MACHINE OPERATOR, HR 60'S. SBP 160-180'S. ON ROOM AIR, SATS > 96%. USES URINAL IN BED WITH ASSISTANCE, ANURIC AT BASELINE, 25ML URINE OUT THIS SHIFT. NO ACUTE EVENTS.
[2024-07-31] MEDS ORDERED: Losartan Potassium 50 MG Tab PO SCH (08:00)
[2024-07-31] MEDS ORDERED: Calcium Acetate 667 MG Gel Cap PO SCH (08:30)
[2024-07-31] MEDS ORDERED: CloNIDine HCl 0.2 MG Tab PO SCH (09:00)
[2024-07-31] MEDS ORDERED: Tamsulosin HCl 0.4 MG Cap PO SCH (09:00)
[2024-07-31] MEDS ORDERED: Sodium Zirconium Cyclosilicate 10 GM Packet PO SCH (09:00)
--- NOTE | 2024-07-31 13:15 | NUR ---
PT ARRIVED TO ROOM AOX3 AND COOPERATIVE OF CARE. PT IS SLOW TO UNDERSTAND, BUT ABLE TO ANSWER QUESTIONS AND FOLLOW EASY DIRECTIONS. PT WAS A ONE PERSON TRANSFER TO ICU BED INTO NEW BED. PT DENIES PAIN AND CALL LIGHT IS WITHIN REACH WITH BEDALARM PLACED. WILL CONTINUE TO MONITOR.
--- NOTE | 2024-07-31 17:26 | NUR ---
PT HAS HAD NOT ACUTE CHANGES. PT TREATED FOR HIGH BP PER EMAR. FAMILY HAS BEEN AT BEDSIDE TALKING WITH FAMILY NO DISTRESS NOTED.
[2024-07-31] MEDS ORDERED: HydrALAZINE HCl 50 MG Tab PO SCH (21:00)
[2024-08-01] VITALS (9 sets, daily range): BP systolic 152–172; BP diastolic 66–79
[2024-08-01] MEDS ORDERED: Acetaminophen 325 MG TABLET PO PRN (01:25)
[2024-08-01 06:36] LABS: BASOPHILS ABSOLUTE AUTO 0.04 K/mm3 (0.00-0.23); BASOPHILS PERCENT AUTO 1 % (0-2); EOSINOPHILS ABSOLUTE AUTO 0.59 K/mm3 (0.00-0.68); EOSINOPHILS PERCENT AUTO 11 % (0-6); Hematocrit 31.4 % (37.0-53.0); Hemoglobin 10.1 g/dL (13.5-17.5); IMMATURE GRAN ABSOLUTE AUTO 0.02 K/mm3 (0.00-0.10); IMMATURE GRAN PERCENT AUTO 0 % (0-1); LYMPHOCYTES ABSOLUTE AUTO 1.01 K/mm3 (0.84-5.20); LYMPHOCYTES PERCENT AUTO 19 % (21-46); MONOCYTES ABSOLUTE AUTO 0.68 K/mm3 (0.16-1.47); MONOCYTES PERCENT AUTO 13 % (4-13); Mean Corpuscular HGB 29.5 pg (26.0-34.0); Mean Corpuscular HGB Conc 32.2 g/dL (31.5-36.5); Mean Corpuscular Volume 92 fL (80-100); Mean Platelet Volume 11.9 fL (9.1-12.4); NEUTROPHILS ABSOLUTE AUTO 2.89 K/mm3 (1.96-9.15); NEUTROPHILS PERCENT AUTO 55 % (41-73); Platelet Count 117 K/mm3 (150-400); RDW Coefficient Variation 15.8 % (11.7-14.2); RDW Standard Deviation 53.1 fL (35.1-46.3); Red Blood Cell Count 3.42 M/mm3 (4.30-5.90); White Blood Cell Count 5.23 K/mm3 (4.00-11.30)
[2024-08-01 06:54] LABS: Albumin, Blood 2.8 g/dL (3.4-5.0); Anion Gap 17 mmol/L (3-11); Blood Urea Nitrogen 55 mg/dL (8-24); Bun/Creatinine Ratio 6.9 (12.0-20.0); CO2, Blood 32 mmol/L (21-32); Calcium, Blood 8.3 mg/dL (8.5-10.1); Chloride, Blood 89 mmol/L (98-108); Creatinine, Blood 7.97 mg/dL (0.60-1.20); Glomerular Filtration Rate 7 (60-); Glucose, Blood 167 mg/dL (70-99); Magnesium, Blood 2.3 mg/dL (1.6-2.4); Phosphorus, Blood 7.6 mg/dL (2.5-4.9); Potassium, Blood 4.5 mmol/L (3.5-5.5); Sodium, Blood 133 mmol/L (136-145)
--- NOTE | 2024-08-01 08:07 | NUR ---
Rn summary: Patient was sleepy at the beginning of shift but arouses easily. Pt did become more alert as the night passed. And is A/O x4 this morning. Pt reted well. He did c/o Rt neck pain and received tylenol for that. He has an abrasion on his left buttocks, mepilex changed. He also has a purple bruise to left hip. Pt voided a small amount during shift. Pt was up independantly in room/steady on feet. States feels so much better today. Dialysis fistula on rt upper arm. Dr. Phan was at bedside this am. Notified of CT being done this am. He does not plan on dialysis today. Day shift nurse notified to contact Dr. Phan if K+is greater than 5 this am.
[2024-08-01] MEDS ORDERED: CloNIDine 0.3 MG Tab PO SCH ×2 (09:00→14:36)
[2024-08-01] MEDS ORDERED: Labetalol HCL 100 MG TAB PO SCH ×2 (09:00→14:36)
[2024-08-01] MEDS ORDERED: HydrALAZINE HCl 50 MG Tab PO SCH (14:36)
[2024-08-01] MEDS ORDERED: CloNIDine HCL 0.2 MG Patch TOP ONE (18:35)
--- NOTE | 2024-08-01 19:42 | NUR ---
SHIFT SUMMARY PT A&OX4. PT ADMITTED DUE TO HTN ENCEPHALOPATHY. PT DID NOT RECEIVE DIALYSIS TODAY. PT AT BEDSIDE TODAY. PT CLONIDINE PATCH WAS REMOVED, NOTIFIED DR. MENDOZA, SHE REPORTED GO AHEAD WITH REPLACEMENT, PT ON Q7 PATCH REPLACEMENT SCHEDULE, CLONIDINE PATCHES REPLACED. OT WORKED WITH PT TODAY, AND PHYSICAL THERAPY. PHYSICAL THERAPY REPORTED THAT PT SAID HE WAS DIZZY STANDING, PT EDUCATED ON USING CALL LIGHT. PT HAS INSULIN ORDERED WITH MEALS. VSS. CALLED TO CLARIFY Q4 NEURO CHECKS WITH DR. MENDOZA, SHE REPORTED SHE WOULD REVIEW AND D/C ORDER, ORDER WAS NOT UPDATED, THIS RN LET NIGHT RN KNOW. PT IN BED. BED IN LOWEST POSITION, CALL LIGHT IN REACH.
[2024-08-02] VITALS (21 sets, daily range): BP systolic 90–182; BP diastolic 50–94
[2024-08-02 06:55] LABS: Hematocrit 30.4 % (37.0-53.0); Hemoglobin 9.9 g/dL (13.5-17.5)
--- NOTE | 2024-08-02 07:14 | NUR ---
PT GIVEN SHOWER AND DIDNT EXPERIENCE ANY DIZZINESS. HE AMBULATED IN THE HALLWAY WITH STAFF WITH STAND-BY ASSIST AND APPEARS SAFE FOR DISCHARGE HOME INSTEAD OF SNF. PLAN FOR HD TODAY.
[2024-08-02 07:41] LABS: Magnesium, Blood 2.7 mg/dL (1.6-2.4)
[2024-08-02 07:46] LABS: Albumin, Blood 2.9 g/dL (3.4-5.0); Anion Gap 18 mmol/L (3-11); Blood Urea Nitrogen 82 mg/dL (8-24); Bun/Creatinine Ratio 7.5 (12.0-20.0); CO2, Blood 31 mmol/L (21-32); Calcium, Blood 8.3 mg/dL (8.5-10.1); Chloride, Blood 87 mmol/L (98-108); Glomerular Filtration Rate 5 (60-); Glucose, Blood 148 mg/dL (70-99); Phosphorus, Blood 8.8 mg/dL (2.5-4.9); Potassium, Blood 5.4 mmol/L (3.5-5.5); Sodium, Blood 131 mmol/L (136-145)
[2024-08-02] MEDS ORDERED: Calcium Gluconate 10% 1,000 MG in NS 50 ML IV ONE (12:50)
[2024-08-02] MEDS ORDERED: CALCIUM GLUC IN NACL, ISO-OSM 50 ML IV ONE (13:00)
[2024-08-02] MEDS ORDERED: NS 250 ML IV PRN (13:45)
[2024-08-02] MEDS ORDERED: LORazepam 0.5 MG Tab PO ONE (14:20)
[2024-08-02] MEDS ORDERED: Darbepoetin Alfa In Albumn Sol 40 MCG/0.4 ML SC SCH (16:00)
--- NOTE | 2024-08-02 19:32 | NUR ---
SHIFT SUMMARY PT A&OX4. PT ADMITTED DUE TO HYPERTENSIVE ENCEPHALOPATHY. PT DID NOT REPORT PAIN TO THIS RN TODAY. PT IS SBA. PT REPORTS SMALL AMOUNT OF VOIDING AT A TIME. PT HAD 2 CRITICAL LABS THIS AM. PT WENT TO DIALYSIS THIS AM, HELD BLOOD PRESSURE LOWERING MEDS, DIALYSIS REPORTED PT HAVING AMS EPISODE DURING DIALYSIS, REPORTED EPISODE TO DOCTOR. DR. MENDOZA CAME TO ASSESS PT. PT PLACED ON TELE. PT HAS AC BLOOD SUGAR ORDER, LAST BLOOD SUGAR WAS 155. PT RECEIVES 8 UNITS WITH MEALS. PT GOT ONE TIME ORDER FOR ATIVAN DUE TO PT REPORTED ANXIETY AND REPORTED "AM I GOING TO " DES ORDERED IONIZED CALCIUM LAB, REPORTED RESULTS TO DES, DES ORDERED CALCIUM GLUCONATE, PT RECEIVED PIGGIBACK DOSE IV. PT RECEIVED DOSE OF DARBEPOETIN. DR. NUNES CALLED THIS RN TO COORDINATE FACETIME CALL, VIA PT CELL PHONE, THIS RN HELPED SET UP CALL, DR. NUNES ASSESSED PT AND ADRESSED CONCERNS. PT IN BED, BED IN LOWEST POSITION, CALL LIGHT IN REACH. FAMILY AT BEDSIDE TODAY.
[2024-08-02] MEDS ORDERED: Melatonin 3 MG Tab PO SCH (21:00)
[2024-08-03 04:02] VITALS: BP 153/65
--- NOTE | 2024-08-03 05:02 | NUR ---
GARBAGE WORKER SUMMARY PTS SBP OVERNIGHT IN THE 150S-170S WITH HEART RATES IN THE 50S-60S. PT DENIES SYMPTOMS. PER REPORT, PT HAD A DIFFICULT TIME IN DIALYSIS WITH HYPOTENSION AND DECREASED LOC WITH CONFUSION. NO SUCH EVENTS OCCURED OVERNIGHT. PT HAS BEEN ALERT AND ORIENTED X 4, CALLING APPROPRIATELY. PER REPORT, WE ARE WAITING ON INSURANCE AUTH FOR PT TO REHAB AT [facility].
[2024-08-03 06:01] LABS: Hematocrit 31.5 % (37.0-53.0); Hemoglobin 10.5 g/dL (13.5-17.5)
[2024-08-03 06:32] LABS: Magnesium, Blood 2.6 mg/dL (1.6-2.4)
[2024-08-03 06:52] LABS: Albumin, Blood 2.9 g/dL (3.4-5.0); Anion Gap 19 mmol/L (3-11); Blood Urea Nitrogen 74 mg/dL (8-24); CO2, Blood 30 mmol/L (21-32); Calcium, Blood 8.4 mg/dL (8.5-10.1); Chloride, Blood 89 mmol/L (98-108); Glucose, Blood 197 mg/dL (70-99); Potassium, Blood 4.9 mmol/L (3.5-5.5); Sodium, Blood 133 mmol/L (136-145)
[2024-08-03 06:55] LABS: Bun/Creatinine Ratio 7.2 (12.0-20.0); Glomerular Filtration Rate 5 (60-); Phosphorus, Blood 8.5 mg/dL (2.5-4.9)
[2024-08-03 07:23] VITALS: BP 146/62
[2024-08-03] MEDS ORDERED: Calcium/Vit D 600 mg-400 Unit Tab PO SCH (12:30)
[2024-08-03 13:05] VITALS: BP 151/66
[2024-08-03 14:47] VITALS: BP 152/64
[2024-08-03 21:03] VITALS: BP 178/70
[2024-08-03 21:55] VITALS: BP 173/65
[2024-08-04] VITALS (18 sets, daily range): BP systolic 119–170; BP diastolic 57–81
--- NOTE | 2024-08-04 05:18 | NUR ---
DOCUMENT CONTROL ASSISTANT SUMMARY PTS SBPS OVERNIGHT WERE IN THE 150S TO 170S WITH HEART RATES IN THE 50S-60S, SINUS DANIELLE TO NSR. PTS ENCEPHALOPATHY CONTINUES TO IMPROVE. HE HAS BEEN ALERT AND ORIENTED X4 WITH VERY MILD STML, SUCH DIFFICULTY REMEMBERING MEDICAL EDUCATION HES RECEIVED. PER REPORT WE ARE WAITING ON INSURANCE AUTH FOR HIM TO REHAB AT [facility]. BED ALARM IS ON BUT PATIENT HAS BEEN CALLING APPROPRIATELY.
[2024-08-04 07:51] LABS: Magnesium, Blood 2.7 mg/dL (1.6-2.4)
[2024-08-04 08:09] LABS: Albumin, Blood 2.9 g/dL (3.4-5.0); Albumin/Globulin Ratio 0.9 (0.8-1.8); Bilirubin, Total 0.7 mg/dL (0.1-1.0); Calcium, Blood 8.4 mg/dL (8.5-10.1); Globulin, Blood 3.4 g/dL (2.2-4.0); Potassium, Blood 5.3 mmol/L (3.5-5.5); Total Protein, Blood 6.3 g/dL (6.4-8.2)
[2024-08-04 08:12] LABS: Creatinine, Blood 12.6 mg/dL (0.60-1.20); Phosphorus, Blood 9.5 mg/dL (2.5-4.9)
[2024-08-04] MEDS ORDERED: Calcium Carbonate 500 MG Tab Chew PO PRN (09:15)
[2024-08-04] MEDS ORDERED: Calcium Acetate 667 MG Gel Cap PO SCH (12:30)
[2024-08-04] MEDS ORDERED: Sevelamer Carbonate 800 MG Tab PO SCH (12:30)
--- NOTE | 2024-08-04 19:32 | NUR ---
END OF SHIFT REPORT: A&Ox4. PLEASANT AND COOPERATIVE WITH CARE. CALLS APPROPRIATELY AND IS ABLE TO ADVOCATE NEEDS EFFECTIVELY. CONTINENT OF BOWEL AND BLADDER. XL BM TODAY; PRIOR TO THAT, x3 DAYS AGO. SBA c FWW. MEDS WHOLE c FLUIDS. C/O HEADACHE TODAY; BP NOTED TO BE HIGH. BP MEDS AND APAP GIVEN. PRN ATIVAN FOR ANXIETY. DIALYSIS TODAY c 1.5L REMOVAL. WOULD LIKE RE-EVAL BY PT/OT TO DETERMINE IF HE IS A CANDIDATE FOR GOING HOME c OUTPATIENT Tx INSTEAD OF SNF. BED IN LOWEST POSITION, CALL LIGHT WITHIN REACH, ALL NEEDS MET. REPORT TO ONCOMING NURSE.
[2024-08-05] VITALS (14 sets, daily range): BP systolic 121–198; BP diastolic 63–87
--- NOTE | 2024-08-05 05:08 | NUR ---
SHOE SALESPERSON SUMMARY PTS STRENGTH AND MENTATION HAS BEEN IMPROVING RAPIDLY EVERY DAY. EVERY DAY HE HAS BEEN TAKING WALKS IN THE HALLWAY AND WEVE NOTICED HE HAS BECOME MUCH STRONGER AND WELL-BALANCED AND NOT NEEDING ANY ASSISTANCE WITH HIS MOBILITY. WE'VE BEEN STANDING BY FOR SAFETY ON HIS TRIPS TO THE BATHROOM BUT HE DOESNT NEED ANY HELP. HE WAS ABLE TO GIVE HIMSELF A SHOWER WITH NO ASSISTANCE. HE WAS ABLE TO GET DRESSED WITH NO ASSISTANCE. HE IS STARTING TO THINK ABOUT POLITELY REFUSING A SNF AND I DID TELL HIM THAT HE IS ALLOWED TO REFUSE ANYTHING HES NOT COMFORTABLE WITH. PTS SYSTOLIC BLOOD PRESSURES REMAIN STABLE IN THE 150S-160S. MENTATION STABLE: PT ALERT AND ORIENTED X 4 WITH SOME ANXIETY. ANTICIPATING POSSIBLE DIALYSIS TODAY WELL STARTING DISCHARGE PLANNING.
[2024-08-05 06:01] LABS: BASOPHILS ABSOLUTE AUTO 0.05 K/mm3 (0.00-0.23); BASOPHILS PERCENT AUTO 1 % (0-2); EOSINOPHILS ABSOLUTE AUTO 0.75 K/mm3 (0.00-0.68); EOSINOPHILS PERCENT AUTO 13 % (0-6); Hematocrit 33.4 % (37.0-53.0); Hemoglobin 11.1 g/dL (13.5-17.5); IMMATURE GRAN ABSOLUTE AUTO 0.02 K/mm3 (0.00-0.10); IMMATURE GRAN PERCENT AUTO 0 % (0-1); LYMPHOCYTES ABSOLUTE AUTO 0.76 K/mm3 (0.84-5.20); LYMPHOCYTES PERCENT AUTO 13 % (21-46); MONOCYTES ABSOLUTE AUTO 0.58 K/mm3 (0.16-1.47); MONOCYTES PERCENT AUTO 10 % (4-13); Mean Corpuscular HGB 29.7 pg (26.0-34.0); Mean Corpuscular HGB Conc 33.2 g/dL (31.5-36.5); Mean Corpuscular Volume 89 fL (80-100); Mean Platelet Volume 11.7 fL (9.1-12.4); NEUTROPHILS ABSOLUTE AUTO 3.83 K/mm3 (1.96-9.15); NEUTROPHILS PERCENT AUTO 64 % (41-73); Platelet Count 184 K/mm3 (150-400); RDW Coefficient Variation 15.2 % (11.7-14.2); RDW Standard Deviation 49.9 fL (35.1-46.3); Red Blood Cell Count 3.74 M/mm3 (4.30-5.90); White Blood Cell Count 5.99 K/mm3 (4.00-11.30)
[2024-08-05 06:29] LABS: Magnesium, Blood 2.5 mg/dL (1.6-2.4)
[2024-08-05 06:37] LABS: Albumin, Blood 2.8 g/dL (3.4-5.0); Albumin/Globulin Ratio 0.8 (0.8-1.8); Bilirubin, Total 0.6 mg/dL (0.1-1.0); Bun/Creatinine Ratio 7.5 (12.0-20.0); Calcium, Blood 8.2 mg/dL (8.5-10.1); Creatinine, Blood 10.3 mg/dL (0.60-1.20); Globulin, Blood 3.7 g/dL (2.2-4.0); Phosphorus, Blood 7.5 mg/dL (2.5-4.9); Potassium, Blood 4.9 mmol/L (3.5-5.5); Total Protein, Blood 6.5 g/dL (6.4-8.2)
[2024-08-05 15:34] LABS: HEPATITIS B SURFACE ANTIBODY >1000.00 IU/L
[2024-08-05 15:49] LABS: HEPATITIS B SURFACE ANTIGEN Negative (Negative)
[2024-08-05 16:19] LABS: HBV CORE ANTIBODIES,TOTAL Positive (Negative)
[2024-08-05] MEDS ORDERED: SEVEC800 PO (17:04)
[2024-08-05] MEDS ORDERED: CLONIDINE TOP (17:06)
[2024-08-05] MEDS ORDERED: CALCIUM CIT 311 EAC7 PO (17:08)
[2024-08-05] MEDS ORDERED: HYDRA50 PO (17:09)
--- NOTE | 2024-08-05 19:47 | NUR ---
DISCHARGE - LATE ENTRY: PT DISCHARGE @ 1740 VIA WHEELCHAIR WITH . MEDICATIONS EXPLAINED BY DR. WESTON AND AGAIN BY THIS RN. HARD COPY FOR PO BINDERS SENT WITH . ALL MEDICATIONS FAXED TO [facility]. PT AWARE TO MAKE FOLLOW-UP APPOINTMENT WITH PCP WITHIN A WEEK. PT RECEIVED DIALYSIS THIS AM PRIOR TO D/C. POWERGLIDE AND IV REMOVED BY THIS RN W/O COMPLICATIONS. TELE SENT BACK. NO QUESTIONS AT TIME OF D/C.
== END 2024-08-05 17:40 | disposition home health service (06) | DRG 77 ==
LOC: ER 09:45 → MEDS 14:07 → ERHOLD 14:07 → ICUE 14:07 → MEDS 07-31 12:00
PROVIDERS: Emergency Medicine; Family Medicine; Internal Medicine Nephrology; ADMIT Internal Medicine
PROC: 5A1D70Z Performance of Urinary Filtration, Intermittent, Less than 6 Hours Per Day (ICD-10-PCS; principal; 2024-07-29)
DX: I67.4 Hypertensive encephalopathy (principal); N18.6 End stage renal disease; I16.1 Hypertensive emergency; N25.81 Secondary hyperparathyroidism of renal origin; I13.2 Hypertensive heart and chronic kidney disease with heart failure and with stage 5 chronic kidney disease, or end stage renal disease; E87.1 Hypo-osmolality and hyponatremia; N40.0 Benign prostatic hyperplasia without lower urinary tract symptoms; E87.5 Hyperkalemia; K21.9 Gastro-esophageal reflux disease without esophagitis; E11.22 Type 2 diabetes mellitus with diabetic chronic kidney disease; F41.9 Anxiety disorder, unspecified; Z99.2 Dependence on renal dialysis; D63.1 Anemia in chronic kidney disease; I50.9 Heart failure, unspecified; Z98.890 Other specified postprocedural states; Z79.4 Long term (current) use of insulin; E83.39 Other disorders of phosphorus metabolism; E83.51 Hypocalcemia
CPT/HCPCS: 36415; 70450; 70496; 70498; 80053; 80069; 80320; 82140; 82330; 82947; 83735; 83880; 84100; 84132; 84484; 85014; 85018; 85025; 85610; 86704; 87040; 87340; 93005; 93010; 93306; 93880; 94762; 96374; 96375; 96376; 97110; 97116; 97161; 97165; 97530; 99285-25; A9270; C1751; J0360; J0612; J0881; J1644; J1815; J2060; J2470; J7042; J7050; J7799; Q9967

== ENCOUNTER 2025-05-07 12:59 | Emergency (ER) | payer MEDICARE, OTHER ==
[~2025-05-07] VITALS: Ht 172.7 cm; Wt 71.2 kg
[~2025-05-07 12:59] MED LIST changes: +ADALAT CC30 M1 PO; +ASPI81CH PO; +CALCIUM CIT 311 EAC7 PO; +CLON.2 PO; +CLONIDINE TOP; +CLONIDINE1 EA17 TD; +Catapres0.3 MG PO; +HYDRA50 PO; +LABE200 PO; +LACT10SY PO; +LOKELMA10 GM PO; +MELA3 PO; +NIFE90ER PO; +RENVELA800 MG PO; +SEVEC800 PO; +UNISOM PM PAIN1 EACH PO
[2025-05-07 13:31] LABS: BASOPHILS ABSOLUTE AUTO 0.06 K/mm3 (0.00-0.23); BASOPHILS PERCENT AUTO 1 % (0-2); EOSINOPHILS ABSOLUTE AUTO 0.38 K/mm3 (0.00-0.68); EOSINOPHILS PERCENT AUTO 7 % (0-6); Hematocrit 35.4 % (37.0-53.0); Hemoglobin 11.0 g/dL (13.5-17.5); IMMATURE GRAN ABSOLUTE AUTO 0.02 K/mm3 (0.00-0.10); IMMATURE GRAN PERCENT AUTO 0 % (0-1); LYMPHOCYTES ABSOLUTE AUTO 0.43 K/mm3 (0.84-5.20); LYMPHOCYTES PERCENT AUTO 8 % (21-46); MONOCYTES ABSOLUTE AUTO 0.46 K/mm3 (0.16-1.47); MONOCYTES PERCENT AUTO 9 % (4-13); Mean Corpuscular HGB Conc 31.1 g/dL (31.5-36.5); Mean Corpuscular Volume 92 fL (80-100); NEUTROPHILS ABSOLUTE AUTO 4.01 K/mm3 (1.96-9.15); NEUTROPHILS PERCENT AUTO 75 % (41-73); NRBC ABSOLUTE 0.00 K/mm3 (0.00-0.02); NRBC Auto 0.0 /100 WBC (0.0-0.2); Platelet Count 129 K/mm3 (150-400); RDW Coefficient Variation 15.9 % (11.7-14.2); RDW Standard Deviation 53.6 fL (35.1-46.3)
[2025-05-07 13:44] LABS: Alanine Aminotransfer (ALT/SGP 14.0 U/L (12-78); Albumin, Blood 3.7 g/dL (3.4-5.0); Albumin/Globulin Ratio 1.0 (0.8-1.8); Anion Gap 10.0 mmol/L (3-11); Aspartate Aminotrans (AST/SGOT 21.0 U/L (12-37); Bilirubin, Total 1.3 mg/dL (0.1-1.0); Blood Urea Nitrogen 39.0 mg/dL (8-24); CO2, Blood 32.0 mmol/L (21-32); Calcium, Blood 8.6 mg/dL (8.5-10.1); Chloride, Blood 96.0 mmol/L (98-108); Creatinine, Blood 6.76 mg/dL (0.60-1.20); Globulin, Blood 3.7 g/dL (2.2-4.0); Glucose, Blood 243.0 mg/dL (70-99); Potassium, Blood 5.2 mmol/L (3.5-5.5); Sodium, Blood 133.0 mmol/L (136-145); Total Protein, Blood 7.4 g/dL (6.4-8.2)
[2025-05-07 19:45] VITALS: BP 210/97
== END 2025-05-07 19:53 | disposition home or self-care (01) ==
LOC: ER 12:59
PROVIDERS: Physician Assistant
DX: I12.0 Hypertensive chronic kidney disease with stage 5 chronic kidney disease or end stage renal disease (principal); E11.22 Type 2 diabetes mellitus with diabetic chronic kidney disease; N18.6 End stage renal disease; Z99.2 Dependence on renal dialysis; Z79.4 Long term (current) use of insulin; Z79.82 Long term (current) use of aspirin; Z79.899 Other long term (current) drug therapy
CPT/HCPCS: 36415; 71046; 80053; 83690; 84484; 85025; 93005; 93010; 99284-25; A9270

== ENCOUNTER 2025-05-12 09:20 | Emergency (ER) | payer MEDICARE, OTHER ==
[~2025-05-12] VITALS: Ht 172.7 cm; Wt 70.8 kg
[2025-05-12 10:26] LABS: BASOPHILS ABSOLUTE AUTO 0.03 K/mm3 (0.00-0.23); BASOPHILS PERCENT AUTO 1 % (0-2); EOSINOPHILS ABSOLUTE AUTO 0.43 K/mm3 (0.00-0.68); EOSINOPHILS PERCENT AUTO 8 % (0-6); Hematocrit 32.8 % (37.0-53.0); Hemoglobin 10.8 g/dL (13.5-17.5); IMMATURE GRAN ABSOLUTE AUTO 0.02 K/mm3 (0.00-0.10); IMMATURE GRAN PERCENT AUTO 0 % (0-1); LYMPHOCYTES ABSOLUTE AUTO 0.49 K/mm3 (0.84-5.20); LYMPHOCYTES PERCENT AUTO 9 % (21-46); MONOCYTES ABSOLUTE AUTO 0.46 K/mm3 (0.16-1.47); MONOCYTES PERCENT AUTO 8 % (4-13); Mean Corpuscular HGB Conc 32.9 g/dL (31.5-36.5); Mean Corpuscular Volume 90 fL (80-100); NEUTROPHILS ABSOLUTE AUTO 4.29 K/mm3 (1.96-9.15); NEUTROPHILS PERCENT AUTO 75 % (41-73); NRBC ABSOLUTE 0.00 K/mm3 (0.00-0.02); NRBC Auto 0.0 /100 WBC (0.0-0.2); Platelet Count 211 K/mm3 (150-400); RDW Coefficient Variation 16.5 % (11.7-14.2); RDW Standard Deviation 53.1 fL (35.1-46.3)
[2025-05-12 11:23] LABS: Alanine Aminotransfer (ALT/SGP 16.0 U/L (12-78); Albumin, Blood 3.5 g/dL (3.4-5.0); Albumin/Globulin Ratio 0.9 (0.8-1.8); Anion Gap 13.0 mmol/L (3-11); Aspartate Aminotrans (AST/SGOT 54.0 U/L (12-37); Bilirubin, Total 1.1 mg/dL (0.1-1.0); Blood Urea Nitrogen 46.0 mg/dL (8-24); CO2, Blood 29.0 mmol/L (21-32); Calcium, Blood 8.6 mg/dL (8.5-10.1); Chloride, Blood 94.0 mmol/L (98-108); Creatinine, Blood 8.77 mg/dL (0.60-1.20); Globulin, Blood 3.9 g/dL (2.2-4.0); Glucose, Blood 315.0 mg/dL (70-99); Potassium, Blood 5.8 mmol/L (3.5-5.5); Sodium, Blood 130.0 mmol/L (136-145); Total Protein, Blood 7.4 g/dL (6.4-8.2)
[2025-05-12] MEDS ORDERED: HYDRALAZINE 50 MG (11:42)
[2025-05-12 11:45] VITALS: BP 226/91
[2025-05-12] MEDS ORDERED: BISA5EC PO (11:46)
== END 2025-05-12 11:52 | disposition home or self-care (01) ==
LOC: ER 09:20
PROVIDERS: Emergency Medicine
DX: R10.9 Unspecified abdominal pain (principal); K59.00 Constipation, unspecified; N18.6 End stage renal disease; Z99.2 Dependence on renal dialysis
CPT/HCPCS: 36415; 74176; 80053; 83690; 85025; 99284-25